=== PATIENT | female | born 1980 | race Hispanic/Latino ===

== ENCOUNTER 2019-06-18 16:51 | Outpatient (RCR) | payer OTHER, MEDICAID, SELFPAY ==
[2019-05-26 19:09] VITALS: BP 127/64; PULSE 87
[2019-06-01 12:50] VITALS: BP 136/63; PULSE 94
[2019-06-04 18:21] VITALS: BP 127/60; PULSE 89
[2019-06-08 17:20] VITALS: BP 118/62; PULSE 97
[2019-06-11 17:47] VITALS: BP 116/58; PULSE 84
[2019-06-15 17:32] VITALS: BP 118/63; PULSE 87
[2019-06-18 18:15] VITALS: BP 113/57; PULSE 80
== END 2019-08-21 07:59 | disposition home or self-care (01) ==
LOC: ANHOBOP 16:51
PROVIDERS: Visit Provider Obstetrics & Gynecology Gynecology
DX: O40.2XX0 Polyhydramnios, second trimester, not applicable or unspecified (principal); O24.419 Gestational diabetes mellitus in pregnancy, unspecified control; O76 Abnormality in fetal heart rate and rhythm complicating labor and delivery; Z3A.24 24 weeks gestation of pregnancy; Z3A.25 25 weeks gestation of pregnancy; Z3A.26 26 weeks gestation of pregnancy; Z3A.27 27 weeks gestation of pregnancy
CPT/HCPCS: 59025

== ENCOUNTER 2019-08-10 10:51 | Outpatient (CLI) | payer OTHER, MEDICAID, SELFPAY ==
[2019-08-10 11:16] VITALS: BP 141/81; PULSE 84
[2019-08-10 11:29] LABS: Basophils Percent Auto 0.3 % (0.2-1.2); Eosinophils Absolute Auto 0.1 K/mm3 (0-0.3); Hematocrit 34.9 % (37.0-47.0); Hemoglobin 11.4 g/dL (12.0-15.0); Immature Granulocyte Absolute 0.05 K/mm3 (0.00-0.031); Immature Granulocyte Percent A 0.8 % (0-0.5); Lymphocytes Absolute Auto 1.78 K/mm3 (0.9-3.2); Lymphocytes Percent Auto 28.5 % (18.3-44.2); Mean Corpuscular HGB Conc 32.7 g/dl (32-36); Mean Corpuscular Volume 85.7 fl (80-100); Mean Platelet Volume 10.3 fl (7.4-10.4); Monocytes Absolute Auto 0.7 K/mm3 (0.1-0.6); Monocytes Percent Auto 10.7 % (2.6-8.5); Neutrophils Absolute Auto 3.7 K/mm3 (1.3-6.7); Neutrophils Percent Auto 58.7 % (45.5-73.1); Platelet Count Result 225 k/mm3 (150-375); Red Blood Count 4.07 M/mm3 (4.2-5.4); Red Cell Distribution Width 12.6 % (11.5-14.5); White Blood Count 6.2 K/mm3 (4.5-10.0)
[2019-08-10 11:31] VITALS: BP 126/69; PULSE 87
[2019-08-10 11:37] LABS: Creatinine Urine 26.7 mg/dL; Total Protein Urine Random 13 mg/dL
[2019-08-10 11:38] LABS: Add Urine Microscopic? YES; Appearance Urine Clear (Clear); Bacteria Urine Trace /hpf; Bilirubin Urine Negative (Negative); Blood Urine 1+ (Negative); Color Urine Straw (Yellow); Glucose Urine UA Negative (Negative); Ketones Urine Negative (Negative); Leukocyte Esterase Ur Negative LEU/UL (NEGATIVE); Mucus Urine Rare /lpf; Nitrate Urine Negative (Negative); Protein Urine Negative (Negative); RBC Urine 0-2 /hpf (0-2); Specific Grav Ur 1.008 (1.001-1.035); Squamous Epithelial Cell Urine Many /hpf (Few); Urobilinogen Urine Negative mg/dL (<2.0)
[2019-08-10 11:42] LABS: Alanine Aminotransferase 17 U/L (4-35); Albumin Level 3.3 g/dL (3.5-5.1); Alkaline Phosphatase 85 U/L (38-126); Aspartate Amino Transferase 18 U/L (14-36); Bilirubin,Total 0.3 mg/dL (0.2-1.3); Blood Urea Nitrogen 7 mg/dL (7-17); Calcium 8.5 mg/dL (8.4-10.2); Carbon Dioxide 23 mmol/L (22-30); Chloride 106 mmol/L (98-107); Estimated Glomerular Filt Rate > 60; Glucose 80 mg/dL (65-105); Potassium 3.9 mmol/L (3.4-5.0); Sodium 133 mmol/L (137-145); Uric Acid 4.5 mg/dL (2.5-7.5)
[2019-08-10 11:46] VITALS: BP 135/74; PULSE 89
--- NOTE | 2019-08-10 11:51 | PC.NURSE ---
Dr Sharma notified of lab results and Bp's. Have patient keep next appt.
== END 2019-08-10 11:56 | disposition home or self-care (01) ==
LOC: ANHOBOP 10:58 → ANHOBPP 11:01
PROVIDERS: Visit Provider Obstetrics & Gynecology Gynecology
DX: O26.899 Other specified pregnancy related conditions, unspecified trimester (principal)
CPT/HCPCS: 36415; 59025; 80053; 81001; 82570; 84156; 84550; 85025; 87086; 87088; 99199

== ENCOUNTER 2019-08-13 16:33 | Outpatient (RCR) | payer OTHER, MEDICAID, SELFPAY ==
[2019-07-04 19:59] VITALS: PULSE 79
--- NOTE | 2019-07-04 20:16 | PC.NURSE ---
1931- pt came in c/o DFM all day. pt states that she has layed down and tried drinking ice water to help but is still not feeling baby move. pt states that while doing NST she is feeling baby move. 2009- Dr. Sharma paged 2011- Dr. Sharma returned page. NST reactive. mom feeling movement. pt ok to d/c home and f/u in office or here if further concerns.
[2019-07-27 18:36] VITALS: BP 130/67; PULSE 85
[2019-08-06 18:45] VITALS: BP 124/64; PULSE 80
[2019-08-13 17:06] VITALS: BP 134/68; PULSE 87
== END 2019-08-21 08:00 | disposition home or self-care (01) ==
LOC: ANHOBOP 16:33
PROVIDERS: Visit Provider Obstetrics & Gynecology Gynecology
DX: O36.8130 Decreased fetal movements, third trimester, not applicable or unspecified (principal); Z3A.29 29 weeks gestation of pregnancy; O24.419 Gestational diabetes mellitus in pregnancy, unspecified control; Z3A.32 32 weeks gestation of pregnancy; Z3A.34 34 weeks gestation of pregnancy; Z3A.35 35 weeks gestation of pregnancy
CPT/HCPCS: 59025

== ENCOUNTER 2019-08-16 19:22 | Outpatient (CLI) | payer OTHER, MEDICAID, SELFPAY ==
[2019-08-16 20:24] LABS: Basophils Percent Auto 0.4 % (0.2-1.2); Eosinophils Absolute Auto 0.1 K/mm3 (0-0.3); Eosinophils Percent Auto 0.7 % (0-4.4); Hematocrit 37.4 % (37.0-47.0); Immature Granulocyte Absolute 0.05 K/mm3 (0.00-0.031); Immature Granulocyte Percent A 0.7 % (0-0.5); Lymphocytes Absolute Auto 2.05 K/mm3 (0.9-3.2); Lymphocytes Percent Auto 29.4 % (18.3-44.2); Mean Corpuscular HGB Conc 32.1 g/dl (32-36); Mean Corpuscular Hemoglobin 27.5 pg (26-34); Mean Corpuscular Volume 85.6 fl (80-100); Mean Platelet Volume 10.3 fl (7.4-10.4); Monocytes Absolute Auto 0.6 K/mm3 (0.1-0.6); Monocytes Percent Auto 8.9 % (2.6-8.5); Neutrophils Absolute Auto 4.2 K/mm3 (1.3-6.7); Neutrophils Percent Auto 59.9 % (45.5-73.1); Platelet Count Result 281 k/mm3 (150-375); Red Blood Count 4.37 M/mm3 (4.2-5.4); Red Cell Distribution Width 12.6 % (11.5-14.5)
[2019-08-16 20:32] LABS: Add Urine Microscopic? YES; Appearance Urine Clear (Clear); Bacteria Urine Trace /hpf; Bilirubin Urine Negative (Negative); Blood Urine 2+ (Negative); Color Urine Yellow (Yellow); Glucose Urine UA Negative (Negative); Ketones Urine Negative (Negative); Leukocyte Esterase Ur Negative LEU/UL (NEGATIVE); Mucus Urine Rare /lpf; Nitrate Urine Negative (Negative); Protein Urine 2+ mg/dL (Negative); Specific Grav Ur 1.025 (1.001-1.035); Squamous Epithelial Cell Urine Moderate /hpf (Few); Urobilinogen Urine Negative mg/dL (<2.0); WBC Urine 0-3 /hpf (0-3)
[2019-08-16 20:38] VITALS: BP 145/72; PULSE 96
[2019-08-16 20:38] LABS: Alanine Aminotransferase 15 U/L (4-35); Albumin Level 3.5 g/dL (3.5-5.1); Alkaline Phosphatase 105 U/L (38-126); Aspartate Amino Transferase 19 U/L (14-36); Bilirubin,Total 0.1 mg/dL (0.2-1.3); Blood Urea Nitrogen 11 mg/dL (7-17); Calcium 8.7 mg/dL (8.4-10.2); Carbon Dioxide 22 mmol/L (22-30); Chloride 104 mmol/L (98-107); Estimated Glomerular Filt Rate > 60; Glucose 114 mg/dL (65-105); Potassium 4.1 mmol/L (3.4-5.0); Sodium 133 mmol/L (137-145); Uric Acid 4.7 mg/dL (2.5-7.5)
== END 2019-08-16 20:59 | disposition home or self-care (01) ==
LOC: ANHOBOP 19:29
PROVIDERS: Obstetrics & Gynecology; Family Provider Obstetrics & Gynecology Gynecology; Visit Provider Obstetrics & Gynecology Gynecology
DX: O13.9 Gestational [pregnancy-induced] hypertension without significant proteinuria, unspecified trimester (principal); Z3A.00 Weeks of gestation of pregnancy not specified
CPT/HCPCS: 36415; 59025; 80053; 81001; 84550; 85025

== ENCOUNTER 2019-08-17 19:27 | Outpatient (CLI) | payer OTHER, MEDICAID, SELFPAY ==
[2019-08-17 19:33] VITALS: BMI 46.2
[2019-08-17 19:54] LABS: Collection Time Urine 24 HOURS
[2019-08-17 19:57] LABS: Specific Gravity Ur 1.014; Total Volume 24 Hour Urine 2600 ml
[2019-08-17 20:01] LABS: Patient Weight 286 Lbs
[2019-08-17 20:09] LABS: Creatinine Clearance Urine 179.5 ml/min (75-125); Total Protein Urine Random 34 mg/dL
[2019-08-17 20:20] LABS: Total Protein Urine 24 Hr > 600 MG/DAY (28-141)
== END 2019-08-17 19:28 | disposition home or self-care (01) ==
LOC: ANHOBOP 19:32
PROVIDERS: Visit Provider Obstetrics & Gynecology
DX: Z34.90 Encounter for supervision of normal pregnancy, unspecified, unspecified trimester (principal); Z3A.00 Weeks of gestation of pregnancy not specified
CPT/HCPCS: 81050; 82575; 84156

== ENCOUNTER 2019-08-20 15:41 | Outpatient (CLI) | payer OTHER, MEDICAID, SELFPAY ==
[2019-08-20 16:03] VITALS: BP 138/76; PULSE 81
[2019-08-20 16:17] VITALS: BP 138/76; PULSE 75
[2019-08-20 16:20] LABS: Basophils Percent Auto 0.4 % (0.2-1.2); Eosinophils Percent Auto 0.4 % (0-4.4); Hematocrit 37.5 % (37.0-47.0); Hemoglobin 12.1 g/dL (12.0-15.0); Immature Granulocyte Absolute 0.06 K/mm3 (0.00-0.031); Immature Granulocyte Percent A 0.8 % (0-0.5); Lymphocytes Absolute Auto 1.79 K/mm3 (0.9-3.2); Lymphocytes Percent Auto 23.3 % (18.3-44.2); Mean Corpuscular HGB Conc 32.3 g/dl (32-36); Mean Corpuscular Hemoglobin 27.6 pg (26-34); Mean Corpuscular Volume 85.6 fl (80-100); Mean Platelet Volume 10.1 fl (7.4-10.4); Monocytes Absolute Auto 0.8 K/mm3 (0.1-0.6); Monocytes Percent Auto 10.9 % (2.6-8.5); Neutrophils Absolute Auto 4.9 K/mm3 (1.3-6.7); Neutrophils Percent Auto 64.2 % (45.5-73.1); Platelet Count Result 279 k/mm3 (150-375); Red Blood Count 4.38 M/mm3 (4.2-5.4); Red Cell Distribution Width 12.8 % (11.5-14.5); White Blood Count 7.7 K/mm3 (4.5-10.0)
[2019-08-21 07:53] LABS: Rapid Plasma Reagin Non-Reactive (NonReactive)
== END 2019-08-20 16:30 | disposition home or self-care (01) ==
LOC: ANHOBOP 15:43 → ANHLDR 15:50
PROVIDERS: Visit Provider Obstetrics & Gynecology Gynecology
DX: Z01.818 Encounter for other preprocedural examination (principal)
CPT/HCPCS: 36415; 59025; 85025; 86592; 86850; 86900; 86901; 99199

== ENCOUNTER 2019-08-21 04:57 | Inpatient (IN) | payer OTHER, MEDICAID, SELFPAY ==
[2019-08-21] VITALS (82 sets, daily range): BP systolic 99–164; BP diastolic 41–91; PULSE 58–93; RESP 16–20; TEMP 36.1–37.6; O2SAT 95–100; BMI 45.3
--- NOTE | 2019-08-21 06:38 | LDADM ---
This patient, Rosalind Simmons, was admitted to Labor/Delivery/Recovery 120 on 08/21/19 at 04:57. Plans for labor, pain management and were discussed with patient. Patient/family oriented to hospital policies and general routines including ID bracelet, bed and alarms, visiting hours, pain management, procedures, bathroom and other care routines, personal items, smoking policy, room service/diet and guest tray routines, infant security routines, call light, and visiting hours. Patient/Family are encouraged to report perceived risks to care and to ask questions if they do not understand what they are told or what they should do. See OBIX for further documentation.
--- NOTE | 2019-08-21 06:55 | WPDANESEPPF ---
Anes - Initial Pre Proc Eval Procedure: Operation Date: 08/21/19 07:30 Proposed Procedures p Repeat Section - Danay Sharma MD Date/Time: 08/21/19 06:55 Surgeon: Danay Sharma MD Pre Op Diagnosis: Patient Data Age: 39 Gender: F Height: 5 ft 6 in Weight: 127.3 kg Last Vital Signs Pulse 88 08/21/19 06:26 BP 139/82 08/21/19 06:26 Pulse Ox 100 08/21/19 06:48 Allergies Allergy/AdvReac Type Severity Reaction Status Date / Time morphine Allergy Mild Rash Verified 02/26/19 03:07 cyclobenzaprine Allergy Unknown Itching Verified 02/26/19 03:07 Home Medications Medication Instructions Recorded Confirmed Type insulin NPH isoph U-100 human 93 unit SUBCUT HS 06/04/19 08/20/19 History [Novolin N NPH U-100 Insulin] metformin 500 mg PO DAILY 08/20/19 08/20/19 History Patient hx anesthesia problems: none Family hx anesthesia problems: none PMFSH Past Medical History Medical History (Updated 08/21/19 @ 06:55 by Samir Mckay MD) Gestational diabetes HTN (hypertension) Miscarriage Surgical History Surgical History (Updated 08/21/19 @ 06:55 by Samir Mckay MD) History of section History of cholecystectomy Family History Family History Son Trisomy 21 Father High cholesterol Heart disease Diabetes mellitus Hypertension Social History Social History Smoking packs per day: 1 Smoking cigarettes per day: 20.0 Years smoked: 20 Smoking pack-years: 20.00 Smoking status: Former smoker Smoking end date: 01/14/19 Substance use: never Gender identity (if verbalized by the patient): Female Spiritual care concerns: No Anes - Eval Final PreProcedure Day of Procedure 08/21/19 06:55 Patient weight: morbidly obese Heart: regular rate and rhythm Lungs: clear to auscultation Airway: Mallampati scale class II Neurological: alert and oriented Last oral intake: >/= 8 hours ASA classification: III Emergent: no Anesthetic plan: proceed Anesthesia type and monitoring: regional spinal and standard monitoring Informed Consent: The patient's anesthetic plan and its attendant risks and benefits were discussed with the patient/family/POA. Questions were solicited and answers provided to the satisfaction of the patient/family/POA.
[2019-08-21] MEDS: LACTATED RINGERS 1,000 ML 125 ML IV CONT (06:57)
--- NOTE | 2019-08-21 07:19 | PM.IMHP ---
H&P: HPI History of Present Illness Chief complaint: Narrative: Rosalind Simmons is a 39 year old female A1 at 36 3/7 wks here for repeat csection due to preeclampsia. complicated by GDMA2 dx 1st trimester. Currently on 93 units NPH at HS and Metformin. EFW has been >95 % and has had polyhydramnios on and off. labs O+; RPR -; HIV-; HBSAG - PMFSH Past Medical History Medical History (Updated 08/21/19 @ 07:26 by Danay Sharma MD) Asthma Gestational diabetes GDMA2-dx 1st trimester HTN (hypertension) Miscarriage Surgical History Surgical History (Updated 08/21/19 @ 07:24 by Danay Sharma MD) History of section x 4 History of cholecystectomy Family History Family History Son Trisomy 21 Father High cholesterol Heart disease Diabetes mellitus Hypertension Social History Social History Smoking packs per day: 1 Smoking cigarettes per day: 20.0 Years smoked: 20 Smoking pack-years: 20.00 Smoking status: Former smoker Smoking end date: 01/14/19 Substance use: never Gender identity (if verbalized by the patient): Female Spiritual care concerns: No Meds Home Medications and Allergies Home Medications Medication Instructions Recorded Confirmed Type insulin NPH isoph U-100 human 93 unit SUBCUT HS 06/04/19 08/20/19 History [Novolin N NPH U-100 Insulin] metformin 500 mg PO DAILY 08/20/19 08/20/19 History Allergies Allergy/AdvReac Type Severity Reaction Status Date / Time morphine Allergy Mild Rash Verified 02/26/19 03:07 cyclobenzaprine Allergy Unknown Itching Verified 02/26/19 03:07 Vital Signs Vital Signs - 24 hr 08/21/19 06:23 08/21/19 06:26 08/21/19 06:28 Pulse Rate 88 Blood Pressure 139/82 Pulse Oximetry 99 99 08/21/19 06:33 08/21/19 06:38 08/21/19 06:43 Pulse Rate Blood Pressure Pulse Oximetry 98 100 99 08/21/19 06:48 Pulse Rate Blood Pressure Pulse Oximetry 100 Exam Const: General: healthy appearing and alert Orientation/consciousness: patient oriented x3 Resp: Effort & Inspection: normal respiratory effort Auscultation: clear to auscultation bilaterally Cardio: Rate: regular rate Rhythm: regular rhythm GI: GI Palp: Yes Soft to palpation, No Tenderness to palpation present (GI) and Yes Other GI palpation findings present (gravid with FH 42 cm) : External Female Exam: normal external appearance Speculum Exam - Vagina: normal appearance of the vagina and normal vaginal discharge Speculum Exam - Cervix: normal appearance of the cervix Bimanual exam- vagina & uterus: uterine size normal and consistency normal Bimanual Exam- Adnexa, other: normal adnexae and No adnexal tenderness Neuro: General: patient oriented x3 Assessment and Plan Assessment and plan (1) Preeclampsia: Code(s): O14.90 - Unspecified pre-eclampsia, unspecified trimester Status: Acute Assessment and Plan: Plan to proceed with repeat LTCS. Plan magnesium (2) Gestational diabetes: Code(s): O24.419 - Gestational diabetes mellitus in , unspecified control Status: Acute Assessment and Plan: plan to check 2 hour GTT 6 wk pp (3) History of section: Code(s): Z98.891 - History of uterine scar from previous surgery Status: Acute Assessment and Plan: x 4 plus x 1 Plan 2 IV's, blood bank notified of high risk for transfusion, cytotec in room
--- NOTE | 2019-08-21 08:31 | P.OPB_ITS ---
Procedure Note - Brief Procedure Note - Brief Date of procedure: 08/21/19 Pre-op diagnosis: IUP 36 3/7 wks; Preeclampsia; GDMA2; Prior c/s x 4 Post-op diagnosis: same Procedure performed: repeat LTCS Anesthesia: spinal Surgeon: Danay Sharma MD Estimated blood loss (mL): 250 Drains: Yes (vasquez) Packing: No Pathology: yes (placenta and 2 cm mass in pelvis attaced to omentum) Complications: No immediate complications Condition: stable Disposition: floor Findings: female infant 7#1oz with 9/9 scores; normal appearing tubes, ov nevin, and uterus
--- NOTE | 2019-08-21 08:34 | PM.OBDSVD ---
DS: Admitting Diagnosis Admitting Diagnosis Admitting Diagnosis: Unspecified pre-eclampsia, unspecified trimester DS: Discharge Diagnosis Discharge Diagnosis (1) delivery delivered: Code(s): O82 - Encounter for delivery without indication Status: Acute (2) Preeclampsia: Code(s): O14.90 - Unspecified pre-eclampsia, unspecified trimester Status: Acute (3) History of section: Code(s): Z98.891 - History of uterine scar from previous surgery Status: Acute (4) Gestational diabetes: Code(s): O24.419 - Gestational diabetes mellitus in , unspecified control Status: Acute OB - DS: Summary OB Procedures : NST, PIH Mgmt, Ultrasound and Other (GDMA2 management) OB Procedures Intrapartum: (repeat #5 ) low cervical, transverse OB Procedures: : None Peripartum Data Infant Delivery Method: Section Procedures: Procedures Operation Date: 08/21/19 07:30 <No data on this case meets the specified criteria> complications: none Status at Discharge Functional status at discharge: independent ambulation Overall status at discharge: patient is progressing back to baseline Time Spent with Patient Time attestation: Total time spent providing and/or coordinating discharge services: Discharge Plan Discharge Attending physician on discharge: Danay Sharma Consulting providers: Samir Mckay Discharging Clinician: Zachary Kebede Anticipated Discharge Date/Time: 08/24/19 08:36 Patient Disposition: Home, Self-Care Activity: may drive after 2 weeks and pelvic rest Diet: regular Discharge Instructions: Education: Mom and Baby Guide Given to: Mother Follow-Up: Call your delivering provider's office for an appointment to be seen in: 1 Week Mom and baby should come to the [facility] for the follow-up appointment. Appointment Date/Time: August 25, 2019 at 8:00 am What to expect at your follow-up visit: Blood Pressure Check Physical Assessment Call [phone] if you are unable to keep your appointment time. BREAST CARE: 1. Wear a snug supportive bra. 2. For engorgement discomfort: Bottle Feeding: A. May apply ice packs ABDOMINAL INCISION: (if applicable) 1. Allow incision to air dry 2. Do NOT use lotions for powders on your incision 3. When showering, allow soap and water to run over the incision, but do not wash incision EPISIOTOMY/PERINEAL CARE: 1. Until bleeding stops, use your kin bottle after urinating 2. Change your pad frequently throughout the day 3. No tub baths until seen by your physician - You may shower ACTIVITY: 1. Rest as much as possible. 2. Do not exercise or lift anything heavier than your baby (such as laundry or other children.) 3. Avoid stairs or driving as much as possible. 4. Do not put anything into the vagina. No douching, tampons, or sexual activity until seen by physician. NOTIFY PHYSICIAN IF YOU HAVE ANY QUESTIONS OR IF ANY OF THE FOLLOWING SYMPTOMS OCCUR: 1. If your incision becomes red, swollen, or more painful than what you have experienced in the hospital. 2. If your vaginal bleeding becomes foul smelling. 3. If your vaginal bleeding becomes more heavy than a period or if your bleeding changes from pink to bright red. However, you may pass an occasional walnut-sized clot once or twice for the first week . 4. If you experience a sharp, shooting pain in you calves. 5. If you discover a hard, reddened area on your breast or if you experience flu-like symptoms. DIET: 1. Eat regular, well-balanced meals. 2. Drink plenty of fluids daily. Patient Instructions: Antibiotic Form Stand Alone Forms: General Discharge Information Follow-up/Referrals: Danay Sharma MD [Physician] - 1 Week Discharge Medications: New ibuprofen 600 mg Tablet 600 mg PO Q6H PA
[2019-08-21] MEDS: LORATADINE 10 MG TABLET PO (09:15)
[2019-08-21] MEDS: OXYTOCIN 30 UNITS/NS 500 ML 30 UNITS/500 ML BAG 125 UNITS IV CONT (09:15)
[2019-08-21] MEDS: MAGNESIUM SULF 4 GM/WATER100ML 4 GM/100 ML BAG IVPB (10:38)
[2019-08-21] MEDS: MAGNESIUM SULF 20GM/WATER500ML 500 ML 50 MG IV CONT ×2 (11:30→20:55)
[2019-08-21] MEDS: KETOROLAC 30 MG/ML VIAL (*BKC) IV PUSH ×2 (11:48→19:43)
--- NOTE | 2019-08-21 12:36 | OBPPTRN ---
Patient transferred to post room #284 via stretcher. Support person present. Oriented to unit, room, information board, rooming in, admission packet and security measures. Patient verbalizes understanding.
[2019-08-21] MEDS: ONDANSETRON INJ 4 MG/2 ML VIAL IV PUSH (13:09)
[2019-08-21] MEDS: KCL 20 MEQ/D5/0.45% SOD CHL 1,000 ML 125 ML IV CONT (17:10)
[2019-08-21] MEDS: SIMETHICONE 80 MG TAB.CHEW PO ×2 (19:43→23:00)
[2019-08-22] MEDS: SIMETHICONE 80 MG TAB.CHEW PO ×6 (01:50→23:30)
[2019-08-22] MEDS: KETOROLAC 30 MG/ML VIAL (*BKC) IV PUSH (01:50)
--- NOTE | 2019-08-22 02:02 | OP_ITS ---
DATE OF PROCEDURE: 08/21/2019 PREOPERATIVE DIAGNOSES: 1. Intrauterine at 36 and 3/7 th weeks. 2. Preeclampsia. 3. Gestational diabetes, insulin requiring. 4. Morbid obesity. 5. Previous section x4. POSTOPERATIVE DIAGNOSES: 1. Intrauterine at 36 and 3/7 th weeks. 2. Preeclampsia. 3. Gestational diabetes, insulin requiring. 4. Morbid obesity. 5. Previous section x4. PROCEDURE: Repeat . ANESTHESIA: Spinal. FINDINGS: Female , 7 pounds 1 ounce. Apgars of 9 at one minute, 9 at five minutes. Normal-appearing tubes, ovaries, and uterus. ESTIMATED BLOOD LOSS: 250 cc. PATHOLOGY: Placenta. DESCRIPTION OF PROCEDURE: The patient was taken to the operating room, placed under anesthesia, prepped and draped in usual sterile fashion in the dorsal supine position with a leftward tilt. Once anesthesia was deemed adequate, the traxi manipulator self-retaining retractor was placed. The patient was prepped and draped. A Pfannenstiel skin incision was made through the prior incisions and carried down to the underlying layer of fascia. Fascia was nicked in the midline and extended laterally using Che scissors. Ochsners were then used to tent the fascia, which was dissected off using sharp and blunt dissection. The rectus muscles were in the midline. The peritoneum was entered during this process. The incision was extended with blunt traction. The abdominal cavity is palpated and no scar tissue was noted anteriorly. The Felipe O retractor was placed. The bladder flap was well below the line needed to incise the uterus. The uterus was incised above the bladder flap with a scalpel and carried down to the underlying membranes. Membranes were ruptured with clear fluid noted. The infant's head was delivered through the incision. The was fully delivered and the cord clamped and cut. The infant handed to the waiting OB nurse. The placenta was removed using manual traction. The uterus was cleared of all clots and debris and left in situ. The uterine incision was grasped posteriorly with a ring forceps. The uterine incision was closed using 0 Monocryl in a running locked fashion. Same suture was used to imbricate. Two additional [id number] sutures are required in the midline for hemostasis. The gutters were irrigated. The incision was again inspected and noted to be hemostatic. The fascia is closed. Using 0 Vicryl in a running fashion subcutaneous tissues were irrigated and noted to be hemostatic. Skin is closed using 4-0 Vicryl in a subcuticular fashion. DermaFlex was placed over the incision. Once the DermaFlex is dry the Mepilex dressing was placed. The patient was taken to Recovery in stable condition. She was given Ancef 3 g prior to incision. Sponge, instrument, needle counts are correct per the OR staff. D I MT: Alex
[2019-08-22 04:15] VITALS: BP 148/84; PULSE 76; RESP 20; TEMP 36.6
[2019-08-22 04:58] LABS: Basophils Percent Auto 0.2 % (0.2-1.2); Eosinophils Absolute Auto 0.1 K/mm3 (0-0.3); Eosinophils Percent Auto 0.7 % (0-4.4); Hematocrit 35.5 % (37.0-47.0); Hemoglobin 11.4 g/dL (12.0-15.0); Immature Granulocyte Absolute 0.04 K/mm3 (0.00-0.031); Immature Granulocyte Percent A 0.4 % (0-0.5); Lymphocytes Absolute Auto 2.13 K/mm3 (0.9-3.2); Lymphocytes Percent Auto 23.6 % (18.3-44.2); Mean Corpuscular HGB Conc 32.1 g/dl (32-36); Mean Corpuscular Hemoglobin 27.6 pg (26-34); Mean Platelet Volume 10.5 fl (7.4-10.4); Monocytes Absolute Auto 0.7 K/mm3 (0.1-0.6); Monocytes Percent Auto 8.2 % (2.6-8.5); Neutrophils Percent Auto 66.9 % (45.5-73.1); Platelet Count Result 234 k/mm3 (150-375); Red Blood Count 4.13 M/mm3 (4.2-5.4); Red Cell Distribution Width 12.8 % (11.5-14.5)
[2019-08-22] MEDS: KCL 20 MEQ/D5/0.45% SOD CHL 1,000 ML 75 ML IV CONT (05:25)
[2019-08-22 08:15] VITALS: BP 156/86; PULSE 84; RESP 20; TEMP 36.7; O2SAT 98
[2019-08-22] MEDS: DOCUSATE SODIUM 100 MG CAPSULE PO ×2 (08:31→16:04)
[2019-08-22] MEDS: IBUPROFEN 600 MG TABLET PO ×3 (08:32→23:30)
--- NOTE | 2019-08-22 10:13 | WPDANLDPN2 ---
Anes-Prog Note L&D Date/Time: 08/22/19 10:13 Comfortable throughout: section Neuraxial method: spinal Epidural/Spinal procedure site: clean & non-tender Neuro status: Neuro function grossly intact. Cardiovascular status: normal Respiratory status: normal Airway patency: baseline Mental status: baseline Post-Op hydration status: normal Vital Signs: Last Vital Signs Temp 36.6 C 08/22/19 04:15 Pulse 76 08/22/19 04:15 Resp 20 08/22/19 04:15 BP 148/84 H 08/22/19 04:15 Pulse Ox 99 08/21/19 15:00 I/O: Intake & Output 08/21/19 08/22/19 08/22/19 23:59 07:59 15:59 Intake Total 1000 1872 Output Total 800 1600 Balance 200 272 Post-procedural complaints: none Patient feedback: Patient satisfied with anesthetic care.
--- NOTE | 2019-08-22 10:14 | WPDANLDNPN2 ---
Anes-Prog Note L&D-Neuraxial Date/Time: 08/22/19 10:14 Opiod-related complaints: none Patient feedback: Patient satisfied with post-operative pain management. IT fentanyl
--- NOTE | 2019-08-22 11:04 | P.PNOB_ITS ---
OB - PN: Subj Subjective Date/time seen: 08/22/19 11:04 doing well pain much better OB - PN: Obj Data Labs CBC & Chem 7: 08/22/19 04:19 Labs: Laboratory Results - last 24 hr 08/22/19 04:19 WBC 9.0 RBC 4.13 L Hgb 11.4 L Hct 35.5 L MCV 86.0 MCH 27.6 MCHC 32.1 RDW 12.8 Plt Count 234 MPV 10.5 H Immature Gran % (Auto) 0.4 Neut % (Auto) 66.9 Lymph % (Auto) 23.6 [place] % (Auto) 8.2 Eos % (Auto) 0.7 Baso % (Auto) 0.2 Lymph # (Auto) 2.13 [place] # (Auto) 0.7 H Eos # (Auto) 0.1 Baso # (Auto) 0.0 Abs Immat Gran (auto) 0.04 H Absolute Neuts (auto) 6.0 Absolute Nucleated RBC 0.0 Nucleated RBC % 0.0 OB - PN A/P Assessment and Plan (1) delivery delivered: Code(s): O82 - Encounter for delivery without indication Status: Acute Assessment and Plan: continue with pp care (2) Preeclampsia: Code(s): O14.90 - Unspecified pre-eclampsia, unspecified trimester Status: Acute Time Spent With Patient Time: Total time spent is greater than 50% in coordination of care (as documented) at patient's floor/unit and/or counseling patient: Exam GI: Other: inc bandage present and dry
[2019-08-22] MEDS: ONDANSETRON INJ 4 MG/2 ML VIAL IV PUSH (12:21)
[2019-08-22 13:40] VITALS: BP 154/88
[2019-08-22 16:10] VITALS: BP 149/85; PULSE 84; RESP 20
[2019-08-22 19:30] VITALS: BP 156/85; PULSE 75; RESP 14; TEMP 36.7; O2SAT 97
[2019-08-22 23:25] VITALS: BP 151/79; PULSE 75
[2019-08-23] MEDS: SIMETHICONE 80 MG TAB.CHEW PO ×2 (03:58→07:12)
[2019-08-23 04:00] VITALS: BP 154/77
[2019-08-23 07:00] VITALS: BP 155/86; PULSE 72; RESP 16; TEMP 36.5; O2SAT 100
[2019-08-23] MEDS: IBUPROFEN 600 MG TABLET PO (07:10)
[2019-08-23] MEDS: DOCUSATE SODIUM 100 MG CAPSULE PO (07:10)
--- NOTE | 2019-08-23 09:46 | PC.NURSE ---
Patient was given the opportunity to view the discharge video Mother & Baby Care, The First Two Weeks and to ask questions. Patient declined viewing the video and has been given the mother/baby guide for home reference. Patient is comfortable with baby care and recovery process. Pt. has 5 other children, 4 of which were c/s.
[2019-08-25 07:47] VITALS: BP 156/73; PULSE 78; RESP 20; TEMP 37.3; O2SAT 100
== END 2019-08-23 11:00 | disposition home or self-care (01) | DRG 788 ==
LOC: ANHLDR 08-26 14:38 → ANHOB2 08-26 14:38
PROVIDERS: Admitting Provider Obstetrics & Gynecology Gynecology; Visit Provider Obstetrics & Gynecology
PROC: 10D00Z1 Extraction of Products of Conception, Low, Open Approach (ICD-10-PCS; CPT 59514; principal; 2019-08-21 07:30)
DX: O34.211 Maternal care for low transverse scar from previous cesarean delivery (principal); O24.424 Gestational diabetes mellitus in childbirth, insulin controlled; Z3A.36 36 weeks gestation of pregnancy; Z37.0 Single live birth; O40.3XX0 Polyhydramnios, third trimester, not applicable or unspecified; O14.94 Unspecified pre-eclampsia, complicating childbirth; O99.214 Obesity complicating childbirth; E66.01 Morbid (severe) obesity due to excess calories; Z87.891 Personal history of nicotine dependence
CPT/HCPCS: 36415; 85025; 88304; 88307; A9270; J0131; J1200; J1885; J2405; J2590; J3010; J3475; J3480; J7120

== ENCOUNTER 2019-08-28 13:06 | Outpatient (CLI) | payer OTHER, MEDICAID, SELFPAY ==
[2019-08-28] VITALS (9 sets, daily range): BP systolic 154–177; BP diastolic 70–79; PULSE 55–61
[2019-08-28 13:39] LABS: Basophils Percent Auto 0.4 % (0.2-1.2); Eosinophils Absolute Auto 0.1 K/mm3 (0-0.3); Eosinophils Percent Auto 1.8 % (0-4.4); Hematocrit 35.7 % (37.0-47.0); Hemoglobin 11.3 g/dL (12.0-15.0); Immature Granulocyte Absolute 0.05 K/mm3 (0.00-0.031); Immature Granulocyte Percent A 0.6 % (0-0.5); Lymphocytes Percent Auto 22.8 % (18.3-44.2); Mean Corpuscular HGB Conc 31.7 g/dl (32-36); Mean Corpuscular Hemoglobin 27.2 pg (26-34); Mean Platelet Volume 9.9 fl (7.4-10.4); Monocytes Absolute Auto 0.6 K/mm3 (0.1-0.6); Monocytes Percent Auto 7.6 % (2.6-8.5); Neutrophils Absolute Auto 5.3 K/mm3 (1.3-6.7); Neutrophils Percent Auto 66.8 % (45.5-73.1); Platelet Count Result 285 k/mm3 (150-375); Red Blood Count 4.15 M/mm3 (4.2-5.4); Red Cell Distribution Width 12.8 % (11.5-14.5); White Blood Count 7.9 K/mm3 (4.5-10.0)
[2019-08-28 13:51] LABS: Alanine Aminotransferase 45 U/L (4-35); Albumin Level 3.5 g/dL (3.5-5.1); Alkaline Phosphatase 74 U/L (38-126); Aspartate Amino Transferase 27 U/L (14-36); Bilirubin,Total 0.2 mg/dL (0.2-1.3); Blood Urea Nitrogen 12 mg/dL (7-17); Calcium 8.8 mg/dL (8.4-10.2); Carbon Dioxide 31 mmol/L (22-30); Chloride 104 mmol/L (98-107); Estimated Glomerular Filt Rate > 60; Glucose 93 mg/dL (65-105); Potassium 4.2 mmol/L (3.4-5.0); Sodium 138 mmol/L (137-145); Uric Acid 6.7 mg/dL (2.5-7.5)
[2019-08-28] MEDS: NIFEdipine 30 MG TAB.ER.24 PO (14:13)
--- NOTE | 2019-08-28 15:45 | PC.NURSE ---
1306-Pt sent over from the office for elevated bp's and swelling.
--- NOTE | 2019-08-28 15:46 | PC.NURSE ---
1400- on unit, reviewed bp's, orders received for procardia 30 now.
--- NOTE | 2019-08-28 15:46 | PC.NURSE ---
1516- reviewed labs and bp's, orders received to discharge pt home and have her pick prescription up in the pharmacy for procardia 30 every day
== END 2019-08-28 15:20 | disposition home or self-care (01) ==
LOC: ANHOBOP 13:09 → ANHOBPP 13:12
PROVIDERS: Visit Provider Obstetrics & Gynecology
DX: O13.9 Gestational [pregnancy-induced] hypertension without significant proteinuria, unspecified trimester (principal); Z3A.00 Weeks of gestation of pregnancy not specified
CPT/HCPCS: 36415; 80053; 84550; 85025; 99199; A9270

== ENCOUNTER 2020-12-06 11:35 | Emergency (ER) | payer OTHER, MEDICAID, SELFPAY ==
[2020-12-06 11:44] VITALS: BP 142/88; PULSE 92; RESP 16; TEMP 36.3; O2SAT 100
--- NOTE | 2020-12-06 12:13 | ED.URI ---
HPI - URI/Sore Throat General Chief Complaint: Upper Respiratory Infection Stated Complaint: SORE THROAT/CONGESTION/STREP EXPOSURE Time Seen by Provider: 12/06/20 11:59 Source: patient and RN notes reviewed Mode of arrival: ambulatory Limitations: no limitations History of Present Illness HPI Narrative: Patient presents today complaining of sore throat, congestion, rhinorrhea, fatigue. Both of her children currently have strep throat. She has been taking Benadryl and Aleve with mild relief. MD elicited complaint: sore throat and nasal congestion Related Data Home Medications Medication Instructions Recorded Confirmed rizatriptan 10 mg PO .PRN PRN 12/06/20 12/06/20 Allergies Allergy/AdvReac Type Severity Reaction Status Date / Time morphine Allergy Mild Rash Verified 12/06/20 11:55 cyclobenzaprine Allergy Unknown Itching Verified 12/06/20 11:55 Review of Systems Review of Systems: CONSTITUTIONAL: Denies body aches, fever, chills, or sweats.+ Fatigue EYES: Denies visual changes, redness, or discharge. ENT: Denies otalgia.+ Rhinorrhea, congestion, sore throat CARDIOVASCULAR: Denies chest pain, palpitations, or edema. RESPIRATORY: Denies dyspnea.+ Cough GASTROINTESTINAL: Denies abdominal pain, nausea, vomiting, or diarrhea. GENITOURINARY: Denies dysuria or hematuria. SKIN: Denies rash, itching, or wounds. MUSCULOSKELETAL: Denies back pain, joint pain, or myalgia. NEUROLOGIC: Denies headache, numbness, tingling, or weakness. PSYCH: Denies depression or anxiety. [facility] Past Medical History Medical History Asthma Gestational diabetes GDMA2-dx 1st trimester HTN (hypertension) Miscarriage Surgical History Surgical History History of section x 4 History of cholecystectomy Family History Family History Son Trisomy 21 Father High cholesterol Heart disease Diabetes mellitus Hypertension Social History Social History Smoking packs per day: 1 Smoking cigarettes per day: 20.0 Years smoked: 20 Smoking pack-years: 20.00 Smoking status: Former smoker Smoking end date: 01/14/19 Substance use: never Gender identity (if verbalized by the patient): Female Spiritual care concerns: No Comments At time of signature, I have reviewed and agree with nursing past medical, surgical, social and family history unless otherwise noted. Please see nursing chart for further information. There is no relevant family history pertinent to the presenting complaint Exam Narrative: GENERAL: Mildly ill-appearing, well-nourished, and in no acute distress. HEAD: Normocephalic, atraumatic. EYES: EOMI. No redness or drainage. Conjunctivae normal. ENT: Mucous membranes pink and moist. Nares congested with clear drainage. TMs normal bilaterally. Throat normal. Uvula midline. NECK: Normal AROM. Supple. No lymphadenopathy. CHEST: No respiratory distress. Clear to auscultation. HEART: Regular rate and rhythm. No murmur appreciated. Normal peripheral pulses. EXTREMITIES: Normal range of motion. No edema. SKIN: Warm, dry, no rash. Capillary refill normal. Normal skin turgor. NEURO: No focal deficits. Alert and oriented x3. Gait steady. PSYCH: Normal affect. No signs of depression or anxiety. Course Vital Signs Vital signs: Vital Signs Temperature 97.4 F L 12/06/20 11:44 Pulse Rate 92 12/06/20 11:44 Respiratory Rate 16 12/06/20 11:44 Blood Pressure 142/88 H 12/06/20 11:44 Pulse Oximetry 100 12/06/20 11:44 Temperature 97.4 F L 12/06/20 11:44 Pulse Rate 92 12/06/20 11:44 Respiratory Rate 16 12/06/20 11:44 Blood Pressure 142/88 H 12/06/20 11:44 Pulse Oximetry 100 12/06/20 11:44 Reviewed. Pt has been instructed to follow up wit
== END 2020-12-06 12:27 | disposition home or self-care (01) ==
PROVIDERS: Emergency Provider Nurse Practitioner
DX: J06.9 Acute upper respiratory infection, unspecified (principal); Z87.891 Personal history of nicotine dependence; J45.909 Unspecified asthma, uncomplicated; I10 Essential (primary) hypertension
CPT/HCPCS: 87081; 87880; 99213; G0463

== ENCOUNTER 2021-01-18 08:19 | Emergency (ER) | payer OTHER, MEDICAID, SELFPAY ==
--- NOTE | ~2021-01-18 | CT_ITS ---
EXAMINATION: CT BRAIN W/O DATE: 01/18/2021 09:34 INDICATION: Headache TECHNIQUE: Computed tomography (CT) of the head was performed without intravenous contrast. The dose- length product was 605.33 mGy-cm. Automated exposure control and iterative reconstruction technique w ere employed. COMPARISON: CT dated 09/16/2011 FINDINGS: Normal brain parenchymal volume for age. Normal hooper-white differentiation. No acute intrac ranial hemorrhage, infarction, mass or mass effect. No ventriculomegaly or midline shift. Midline sagittal images demonstrate a normal corpus callosum, c raniovertebral junction and sella turcica. Basilar cisterns are patent. Paranasal sinuses and mastoids are pneumatized. No depressed skull fractures. IMPRESSION: 1. No acute intracranial abnormality. Reviewed, dictated and finalized at location B.
[2021-01-18 08:22] VITALS: BP 133/93; PULSE 74; RESP 16; TEMP 36.7; O2SAT 98
[2021-01-18] MEDS: diphenhydrAMINE HCl INJ 50 MG/ML VIAL 25 MG IV PUSH (08:57)
[2021-01-18] MEDS: KETOROLAC 30 MG/ML VIAL (*BKC) IV PUSH (08:58)
[2021-01-18] MEDS: METOCLOPRAMIDE HCL INJ 10 MG/2 ML VIAL IV PUSH (08:59)
[2021-01-18] MEDS: LACTATED RINGERS 1,000 ML 999 ML IV CONT (09:00)
--- NOTE | 2021-01-18 09:01 | ED.HA ---
HPI - Headache General Chief Complaint: Headache Stated Complaint: Migraine GONZALEZ Time Seen by Provider: 01/18/21 08:22 Source: patient and RN notes reviewed Mode of arrival: ambulatory Limitations: no limitations History of Present Illness HPI Narrative: This is a 41 year old female with history of migraines who presents for evaluation of left frontal headache. She developed headache last night. She describes headache as throbbing that has gradually worsened . She has associated nausea, vomiting and dizziness. She reports history of migraine headache but states she has never had vomiting with her headaches before. She denies fever, chills. She denies focal deficits. Headache is 9/10. Related Data Home Medications Medication Instructions Recorded Confirmed rizatriptan 10 mg PO .PRN PRN 12/06/20 12/06/20 bupropion HCl mg PO 01/18/21 fluoxetine mg 01/18/21 01/18/21 Allergies Allergy/AdvReac Type Severity Reaction Status Date / Time morphine Allergy Mild Rash Verified 01/18/21 08:29 cyclobenzaprine Allergy Unknown Itching Verified 01/18/21 08:29 Review of Systems Review of Systems: All systems reviewed & are unremarkable except as noted in HPI and below PMFSH Past Medical History Medical History Asthma Gestational diabetes GDMA2-dx 1st trimester HTN (hypertension) Miscarriage Surgical History Surgical History History of section x 4 History of cholecystectomy Family History Family History Son Trisomy 21 Father High cholesterol Heart disease Diabetes mellitus Hypertension Social History Social History Smoking packs per day: 1 Smoking cigarettes per day: 20.0 Years smoked: 20 Smoking pack-years: 20.00 Smoking status: Former smoker Smoking end date: 01/14/19 Substance use: never Gender identity (if verbalized by the patient): Female Spiritual care concerns: No Exam Const: General: no acute distress and alert Orientation/consciousness: patient oriented x3 HENMT: Head: normocephalic and atraumatic Face and sinus: face symmetric Mouth: Yes Normal oral and palatal mucosa present, Yes lip normal, Yes oropharynx normal and Yes moist mucous membranes Eyes: Conjunctivae: conjunctivae normal Pupils: Equal, round and reactive pupils present EOM: EOMs intact bilaterally Chest: Chest palpation & inspection: normal inspection of the chest Resp: Effort & Inspection: normal respiratory effort and no retractions Auscultation: clear to auscultation bilaterally Cardio: Rate: regular rate Rhythm: regular rhythm Heart sounds: no murmurs GI: GI Palp: Yes Soft to palpation, No Tenderness to palpation present (GI) and No Guarding due to palpation present (GI) Auscultation: normal bowel sounds Skin: General skin exam: normal color Rashes: no rashes Neuro: General: patient oriented x3, moves all extremities and CN's II-XI intact bilaterally Psych: Mental Status: mental status grossly normal Affect: normal affect Course Reevaluation(s) Reevaluation #1: PAtient states she feels much better and she is ready for discharge home. CT was unremarkable. This is gradual and not sudden onset to suggest SAH. No sign of meningitis. Date: 01/18/21 Time: 10:38 Vital Signs Vital signs: Vital Signs Temperature 98.0 F 01/18/21 08:22 Pulse Rate 74 01/18/21 08:22 Respiratory Rate 16 01/18/21 08:22 Blood Pressure 133/93 H 01/18/21 08:22 Pulse Oximetry 98 01/18/21 08:22 Temperature 98.0 F 01/18/21 08:22 Pulse Rate 74 01/18/21 08:22 Respiratory Rate 16 01/18/21 08:22 Blood Pressure 133/93 H 01/18/21 08:22 Pulse Oximetry 98 01/18/21 08:22 MDM - Headache Imaging Data Radiologist's impression: ITS Impre
== END 2021-01-18 11:14 | disposition home or self-care (01) ==
PROVIDERS: Emergency Provider General Practice
DX: G43.109 Migraine with aura, not intractable, without status migrainosus (principal); Z87.891 Personal history of nicotine dependence; J45.909 Unspecified asthma, uncomplicated; I10 Essential (primary) hypertension
CPT/HCPCS: 70450; 96361; 96374; 96375; 99284; J1200; J1885; J2765; J7120

== ENCOUNTER 2022-08-04 13:15 | Emergency (ER) | payer OTHER, SELFPAY ==
[2022-08-04 13:26] VITALS: BP 131/79; PULSE 84; RESP 16; TEMP 36.5; O2SAT 100
--- NOTE | 2022-08-04 13:37 | ED.SKABFB ---
HPI - Skin/Abscess/Foreign Bdy General Chief complaint: Skin/Abscess/Foreign Body Stated complaint: POSSIBLE SPIDER BITE History of Present Illness HPI narrative: 42 yo Female presents to urgent care with complaints of an area of redness to her right lower leg. Patient states 3 days ago she 1st noticed a quarter-sized area which has now grown in size. Patient reports associated tenderness to the area. Denies any fevers, chills, or vomiting. Related Data Home Medications Medication Instructions Recorded Confirmed bupropion HCl 150 mg 24 hr tablet, 300 mg PO DAILY 01/18/21 08/04/22 extended release Allergies Allergy/AdvReac Type Severity Reaction Status Date / Time morphine Allergy Mild Rash Verified 08/04/22 13:25 cyclobenzaprine Allergy Unknown Itching Verified 08/04/22 13:25 Review of Systems Review of Systems: Pertinent positives and pertinent negatives per HPI. [facility] Past Medical History Medical History Asthma Gestational diabetes GDMA2-dx 1st trimester HTN (hypertension) Miscarriage Surgical History Surgical History History of section x 4 History of cholecystectomy Family History Family History Son Trisomy 21 Father High cholesterol Heart disease Diabetes mellitus Hypertension Social History Social History Smoking packs per day: 1 Smoking cigarettes per day: 20.0 Years smoked: 20 Smoking pack-years: 20.00 Smoking status: Former smoker Smoking end date: 01/14/19 Substance use: never Gender identity (if verbalized by the patient): Female Spiritual care concerns: No Comments At the time of my signature, I reviewed and agree with the nursing past medical, surgical, social, and family history. There is no relevant family history pertinent to the patient complaint. Exam Narrative: GENERAL: This is a well-nourished, well-developed patient, in no apparent distress. HEAD: normocephalic, atraumatic. EYES: PERRL. Sclera clear/white. Vision is grossly intact. EARS: External ears normal, auditory canals clear and without drainage, TMs normal without perforation. Hearing grossly intact. NOSE: External nose normal with no obvious nasal discharge, nares without redness, no rhinorrhea. THROAT: Mucous membranes moist, posterior pharynx clear. NECK: Neck supple, non-tender without lymphadenopathy, masses or thyromegaly. CARDIOVASCULAR: Regular rate and rhythm without murmurs, gallops, or rubs. RESPIRATORY: Clear to auscultation. Breath sounds equal bilaterally. No wheezes, rales, or rhonchi. GASTROINTESTINAL: Abdomen soft, non-tender, nondistended. Bowel sounds are active. No hepato-splenomegaly, or palpable masses. No guarding. SKIN: Area of erythema extending approximately 7 cm in diameter with area of ecchymosis approximately 2 cm in center. No drainage no streaking. NEURO: awake, alert, and oriented to person, place and time. There were no obvious focal neurologic abnormalities. EXTREMITIES: No clubbing, cyanosis, or edema. No joint tenderness, effusion, or edema noted. BACK: Nontender without deformity or crepitance. No flank tenderness. Course Course Level of Care: Express Care Visit Vital Signs Vital signs: Vital Signs Temperature 97.7 F 08/04/22 13:26 Pulse Rate 84 08/04/22 13:26 Respiratory Rate 16 08/04/22 13:26 Blood Pressure 131/79 08/04/22 13:26 Pulse Oximetry 100 08/04/22 13:26 Temperature 97.7 F 08/04/22 13:26 Pulse Rate 84 08/04/22 13:26 Respiratory Rate 16 08/04/22 13:26 Blood Pressure 131/79 08/04/22 13:26 Pulse Oximetry 100 08/04/22 13:26 Reviewed MDM - Skin/Abscess/Foreign Bdy MDM Narrative Medical decision making narrative: Go to the ER with any new worseni
== END 2022-08-04 13:43 | disposition home or self-care (01) ==
PROVIDERS: Emergency Provider Nurse Practitioner Family; PCP Physician Assistant
DX: L03.115 Cellulitis of right lower limb (principal); S80.861A Insect bite (nonvenomous), right lower leg, initial encounter; I10 Essential (primary) hypertension; Z87.891 Personal history of nicotine dependence; W57.XXXA Bitten or stung by nonvenomous insect and other nonvenomous arthropods, initial encounter
CPT/HCPCS: 99213; G0463

== ENCOUNTER 2024-02-13 15:21 | Outpatient (CLI) | payer OTHER, SELFPAY ==
[2024-02-13 19:30] LABS: Basophils Absolute Auto 0.1 K/mm3 (0.0-0.1); Basophils Percent Auto 0.8 % (0.2-1.2); Eosinophils Absolute Auto 0.2 K/mm3 (0-0.3); Eosinophils Percent Auto 2.4 % (0-4.4); Hematocrit 48.4 % (37.0-47.0); Hemoglobin 15.6 g/dL (12.0-15.0); Immature Granulocyte Absolute 0.04 K/mm3 (0.00-0.031); Immature Granulocyte Percent A 0.5 % (0-0.5); Immature Platelet Fraction Pct 3.9 % (0.9-11.2); Lymphocytes Percent Auto 21.8 % (18.3-44.2); Mean Corpuscular HGB Conc 32.2 g/dl (32-36); Mean Corpuscular Hemoglobin 29.2 pg (26-34); Mean Corpuscular Volume 90.6 fl (80-100); Mean Platelet Volume 10.7 fl (7.4-10.4); Monocytes Absolute Auto 0.9 K/mm3 (0.1-0.6); Monocytes Percent Auto 10.2 % (2.6-8.5); Neutrophils Absolute Auto 5.6 K/mm3 (1.3-6.7); Neutrophils Percent Auto 64.3 % (45.5-73.1); Nucleated Red Blood Cells Perc 0.2 % (0.0-0.2); Platelet Count Result 278 k/mm3 (150-375); Red Blood Count 5.34 M/mm3 (4.2-5.4); Red Cell Distribution Width 12.8 % (11.5-14.5); White Blood Count 8.7 K/mm3 (4.5-10.0)
[2024-02-13 19:39] LABS: Alanine Aminotransferase 28 U/L (6-35); Albumin Level 4.4 g/dL (3.5-5.1); Alkaline Phosphatase 62 U/L (38-126); Anion Gap 7 mmol/L (4-12); Aspartate Amino Transferase 40 U/L (14-36); Bilirubin,Total 0.3 mg/dL (0.2-1.3); Blood Urea Nitrogen 13 mg/dL (7-17); Calcium 9.2 mg/dL (8.4-10.2); Carbon Dioxide 27 mmol/L (22-30); Chloride 104 mmol/L (98-107); Estimated Glomerular Filt Rate > 60; Glucose 116 mg/dL (65-110); Potassium 3.7 mmol/L (3.4-5.0); Sodium 138 mmol/L (137-145)
[2024-02-13 20:31] LABS: Vitamin D 25 Hydroxy 35.8 ng/mL
[2024-02-13 20:49] LABS: Iron 38 ug/dL (37-170)
[2024-02-13 20:59] LABS: Percent Iron Saturation 11 % (20-50)
[2024-02-13 21:36] LABS: Hemoglobin A1C 5.4 % (<5.7)
== END 2024-02-13 15:22 | disposition home or self-care (01) ==
LOC: ANHGOSHLAB 15:24
PROVIDERS: PCP Clinical Nurse Specialist; Visit Provider Clinical Nurse Specialist
DX: R74.8 Abnormal levels of other serum enzymes (principal); E03.9 Hypothyroidism, unspecified; G43.909 Migraine, unspecified, not intractable, without status migrainosus; I10 Essential (primary) hypertension; E55.9 Vitamin D deficiency, unspecified; R73.9 Hyperglycemia, unspecified; R53.83 Other fatigue
CPT/HCPCS: 36415; 80053; 82306; 82728; 83036; 83540; 83550; 84443; 85025; 85055

== ENCOUNTER 2024-03-19 09:20 | Outpatient (CLI) | payer OTHER, SELFPAY ==
[2024-03-19 12:35] LABS: Basophils Absolute Auto 0.1 K/mm3 (0.0-0.1); Basophils Percent Auto 0.7 % (0.2-1.2); Eosinophils Absolute Auto 0.2 K/mm3 (0-0.3); Hematocrit 44.6 % (37.0-47.0); Hemoglobin 14.3 g/dL (12.0-15.0); Immature Granulocyte Absolute 0.02 K/mm3 (0.00-0.031); Immature Granulocyte Percent A 0.2 % (0-0.5); Lymphocytes Absolute Auto 2.62 K/mm3 (0.9-3.2); Lymphocytes Percent Auto 30.4 % (18.3-44.2); Mean Corpuscular HGB Conc 32.1 g/dl (32-36); Mean Corpuscular Hemoglobin 28.7 pg (26-34); Mean Corpuscular Volume 89.4 fl (80-100); Mean Platelet Volume 10.4 fl (7.4-10.4); Monocytes Absolute Auto 0.6 K/mm3 (0.1-0.6); Neutrophils Absolute Auto 5.2 K/mm3 (1.3-6.7); Neutrophils Percent Auto 59.7 % (45.5-73.1); Platelet Count Result 271 k/mm3 (150-375); Red Blood Count 4.99 M/mm3 (4.2-5.4); Red Cell Distribution Width 12.3 % (11.5-14.5); White Blood Count 8.6 K/mm3 (4.5-10.0)
[2024-03-19 13:18] LABS: Cholesterol 162 mg/dL (0-200); HDL Direct 36 mg/dL; Triglycerides 68 mg/dL (<150)
[2024-03-19 13:29] LABS: LDL Cholesterol Direct 96 mg/dL
== END 2024-03-19 09:21 | disposition home or self-care (01) ==
PROVIDERS: PCP Clinical Nurse Specialist; Visit Provider Clinical Nurse Specialist
DX: R79.89 Other specified abnormal findings of blood chemistry (principal); I10 Essential (primary) hypertension
CPT/HCPCS: 36415; 80061; 85025

== ENCOUNTER 2024-09-03 02:10 | Emergency (ER) | payer OTHER, SELFPAY ==
[2024-09-03 02:13] VITALS: BP 188/99; PULSE 76; RESP 20; TEMP 36.4; O2SAT 100
--- OUTSIDE RECORDS SUMMARY | 2024-09-03 02:13 | XMS_ITS | Data Portability ---
Author Organization [place] - S [employer], Main Office Address [address] [place] [address] Assessment No assessment recorded. Plan of Treatment Reminders Order Date Submit Date Provider Last Modified By Organization Details Last Modified Time Details Appointments None recorded. Lab glycohemogl obin, total, blood 2023 024 [email or web address] 4 [facility] (Lab), [address] [place], [address], 4 10:28:48 lipid panel, serum [email or web address] [place] [address] (Lab), [address] [place], [address], 3 11:09:50 CBC [email or web address] [place] [address] (Lab), [address] [place], [address], 3 11:10:16 TSH, serum, reflex free T4 [id number] [place] [address] (Lab), [address] [place], [address], 3 11:10:31 iron + TIBC + ferritin, serum [email or web address] [place] [address] (Lab), [address] [place], [address], 3 11:10:50 vitamin D, 25-hydroxy, total, serum [id number] (Lab), [address] [place], [address], 3 11:11:09 CMP, serum or plasma [email or web address] (Lab), [address] [place], [address], 3 11:09:18 HbA1c (hemoglobin A1c), blood [email or web address] (Lab), [address] [place], [address], 3 11:09:36 vitamin B12 + folate, serum or blood [email or web address] (Lab), [address] [place], [address], 3 11:11:25 Referral general surgeon referral - Please call pt to schedule appt. Thank you 2022 023 [email or web address] Dayron Murphy MD, [address] [place] [address] [address], [place], [address], 3 15:56:03 Procedures None recorded. Surgeries None recorded. Imaging None recorded. Medication Orders Ozempic 0.25 mg or 0.5 mg (2 mg/1.5 mL) subcutaneou s pen injector 2022 023 [facility][id number], [address] [place], [address], 3 10:33:51 doxycycline hyclate 100 mg capsule 2022 023 [email or web address] 1 [facility], [address] [facility], [place], [address], 3 10:19:30 Patient TargetsNo targets recorded. Patient InstructionsNo instructions recorded. Reason for Referral General Surgeon Referral for Abscess of breast Please call pt to schedule appt. Thank you Referring Physician: Camila Schmidt, Family Medicine, Encounter Date: 06/26/2022 Results Created Date Observation Date Name Description Value Unit Range Abnormal Flag Note LastModifiedBy Organization Detail LastModifiedTime 08/08/19 23 08/07/2022 CT, lower extre mity, w/ contr ast No observ ation record ed. [email or web address] [facility], [place], [address], 08/08/2022 10:45:17 Result Notes None recorded. Problems Name Problem SNOMED Code Status Onset Date Resolution Date Notes Provider Name and Address Organization Details Recorded Time Fatigue 81123217 Active 2022 TOBY Walters [address], [address], [place], [address], [employer] 3 13:57:49 Mixed anxiety and depressive disorder 089556869 Active 2022 TOBY Walters [address], [address], [place], [address], [employer] 3 10:35:22 Abscess of breast 42536122 Active 2022 TOBY Walters [address], [address], [place], [address], [employer] 3 10:40:23 Morbid obesity 197010589 Active 2022 TOBY Walters [address], [address], [place], [address], [employer] 3 10:45:15 Vitamin D deficiency 06043149 Active 2022 TOBY Walters [address], [address], [place], [address], [employer] 3 10:47:53 Cobalamin deficiency 457974334 Active 2022 TOBY Walters [address], [address], [place], [address], [employer] 3 10:48:10 Nicotine dependence 88456052 Active 2022 TOBY Walters [address], [address], [place], [address], [employer] 3 10:52:43 Cellulitis of skin 535083741 Active 2022 Payal Hoang MD [address], [facility] [address], [place], [address], [employer] 3 15:41:07 Migraine 74178540 Active 2022 TOBY Walters [address], [place] [address], [place], [address], [employer] 3 14:54:23 Severe obesity 8482095880303 4 Active 2023 JANIS Sage [address] [facility], [place] [address], [place], [address], [employer] 4 09:55:44 Problem Notes None recorded. Procedures Surgical History Date Name Laterality Status Provider Name and Address Organization Details Recorded Time cholecystectomy completed TOBY Walters [address] [facility], [place] [address], [place], [address], [employer] 06/26/2022 10:51:09 Imaging Results None recorded. Procedure Notes None recorded. Medical Equipment None Reported. Allergies Allergen ID Allergen Name Allergen Category Reaction Reaction Severity Criticality Documentation Date Start Date Code Code System Note Provider Name and Address Organization Details Recorded Time 59457 morphine medicatio n itching moderate high 06/26/2022 7052 RxNorm KELSEY Joseph, [employer] 3 10:27:55 Medications Name Sig Start Date Stop Date Status Note LastModified by Organization Details LastModified Time fluoxetine 40 mg capsule TAKE 1 CAPSULE BY MOUTH EVERY DAY active Not Available Not Available No t Available doxycycline hyclate 100 mg capsule Take 1 capsule twice a day by oral route for 10 days. 10/01 completed Not Available Not Available Not Available ibuprofen 800 mg tablet TAKE 1 TABLET BY MOUTH EVERY 8 HOURS NEEDED WITH FOOD active Not Available Not Available No t Available sumatriptan 100 mg tablet TAKE 1 TABLET BY MOUTH AT ONSET OF MIGRAINE. MAY REPEAT IN 2 HOURS IF NEEDED. MAX OF 2 TABS/24 HOURS active Not Available Not Available No t Available hydrocodone 5 mg-acetamin ophen 325 mg tablet TAKE 1 TABLET BY MOUTH EVERY 6 HOURS NEEDED active Not Available Not Available No t Available rizatriptan 10 mg tablet TAKE ONE TABLET BY MOUTH AT ONSET OF MIGRAINE, MAY REPEAT DOSE ONE TIME AFTER AT LEAST 2 HOURS active Not Available Not Available No t Available acetaminoph en 300 mg-codeine 30 mg tablet TAKE 1 TABLET BY MOUTH EVERY 6 HOURS NEEDED FOR PAIN 10/01 completed Not Available Not Available Not Available sulfamethox azole 800 mg-trimetho prim 160 mg tablet TAKE 1 TABLET BY MOUTH TWICE A DAY FOR 10 DAYS 10/01 completed Not Available Not Available Not Available hydrocodone 10 mg-acetamin ophen 325 mg tablet TAKE 0.5-1 TABLETS BY MOUTH EVERY 6 (SIX) HOURS NEEDED FOR PAIN. INDICATIO NS: ACUTE PAIN active Not Available Not Available No t Available tramadol 50 mg tablet TAKE 1 TO 2 TABLETS BY MOUTH EVERY 6 HOURS NEEDED 10/01 completed Not Available Not Available Not Available acetaminoph en 500 mg tablet active Not Available Not Available Not Available benzonatate 100 mg capsule TAKE 1 CAPSULE BY MOUTH EVERY 8 HOURS NEEDED 10/01 completed Not Available Not Available Not Available cephalexin 500 mg capsule TAKE 1 CAPSULE BY MOUTH EVERY 12 HOURS FOR 7 DAYS 10/01 completed Not Available Not Available Not Available docusate sodium 100 mg capsule active Not Available Not Available N ot Available diclofenac sodium 75 mg tablet,gloria yed release TAKE 1 TABLET BY MOUTH 2 TIMES DAILY NEEDED. active Not Available Not Available No t Available hydroxyzine HCl 25 mg tablet TAKE 1 TABLET BY MOUTH 4 TIMES DAILY NEEDED FOR ANXIETY. active Not Available Not Available No t Available ergocalcife rol (vitamin D2) 1,250 mcg (50,000 unit) capsule TAKE 1 CAPSULE BY MOUTH ONCE WEEKLY active Not Available Not Available No t Available methylpredn isolone 4 mg tablets in a dose pack TAKE 6 TABLETS ON DAY 1 DIRECTED ON PACKAGE AND DECREASE BY 1 TAB EACH DAY FOR A TOTAL OF 6 DAYS 10/01 completed Not Available Not Available Not Available amoxicillin 875 mg-potassiu m clavulanate 125 mg tablet TAKE 1 TABLET BY MOUTH EVERY 12 HOURS FOR 10 DAYS 10/01 completed Not Available Not Available Not Available oxycodone 5 mg tablet 10/01 completed Not Available Not Available Not Available bupropion HCl XL 300 mg 24 hr tablet, extended release TAKE 1 TABLET BY MOUTH EVERY DAY active Not Available Not Available No t Available bupropion HCl XL 150 mg 24 hr tablet, extended release TAKE 1 TABLET BY MOUTH EVERY DAY active Not Available Not Available No t Available Vitamin D3 125 mcg (5,000 unit) tablet Take 1 tablet every day by oral route. 2022 active Not Available Not Available Not Avai lable Ozempic 0.25 mg or 0.5 mg (2 mg/1.5 mL) subcutaneou s pen injector active Not Available Not Available Not Available Mounjaro 2.5 mg/0.5 mL subcutaneou s pen injector Inject by subcutane ous route for 28 days. active Not Available Not Available No t Available Ozempic 0.25 mg or 0.5 mg (2 mg/3 mL) subcutaneou s pen injector active Not Available Not Available Not Available Vitals Date Recorded Body height Body mass index (BMI) Body weight Body temperature Heart rate Oxygen saturation Oxygen saturation in Arterial blood by Pulse oximetry Systolic blood pressure Diastolic blood pressure Provider Name and Address Organization Details Last Updated DateTime 4 165.1 cm 44.6 kg/m2 605870. 76 g 98.8 [degF] 84 /min 99 % 99 % 158 mm[Hg] 90 mm[Hg] Devi Rain RN [place] [employer] 4 09:50:24 Date Recorded Body height Body temperature Heart rate Oxygen saturation Oxygen saturation in Arterial blood by Pulse oximetry Body mass index (BMI) Body weight Systolic blood pressure Diastolic blood pressure Provider Name and Address Organization Details Last Updated DateTime 3 165.1 cm 97.8 [degF] 77 /min 98 % 98 % 45.6 kg/m2 676099. 31 g 140 mm[Hg] 80 mm[Hg] Belkys Kebede MA [facility] [employer] [facility] 3 10:25:59 Date Recorded Systolic blood pressure Diastolic blood pressure Provider Name and Address Organization Details Last Updated DateTime 10/01/2022 140 mm[Hg] 80 mm[Hg] TOBY Walters [address], [facility] [address], [place], [address], [facility] [employer] [facility] 10/01/2022 10:25:49 Date Recorded Body height Body mass index (BMI) Body weight Body temperature Oxygen saturation Oxygen saturation in Arterial blood by Pulse oximetry Heart rate Provider Name and Address Organization Details Last Updated DateTime 3 165.1 cm 45.9 kg/m2 528998. 49 g 97 [degF] 98 % 98 % 80 /min Carolyn Cartwright CMA [facility] [employer] [facility] 10:15:31 Social History Question Answer Notes LastModified by [employer] Details LastModified Time Tobacco Smoking Status Current Every Day Smoker Pilar darden, [facility] [employer] [facility] 05/22/2023 09:45:12 If You Are , What Was Your Level Of Alcohol Consumption Prior To ? None [email or web address] Information not available 05/22/2023 What Is Your Level Of Caffeine Consumption? None Information not available 06/26/2022 What Type Of Diet Are You Following? REGULAR [email or web address] Information not available 06/26/2022 How Many Days Of Moderate To Strenuous Exercise, Like A Brisk Walk, Did You Do In The Last 7 Days? 3 [email or web address] Information not available 05/22/2023 Have You Ever Been Counseled For Unhealthy Alcohol Use? No [email or web address] Information not available 05/22/2023 Do You Have Any Dietary Restrictions? No [email or web address] Information not available 05/22/2023 Sex: Unknown Functional Status Question Answer Note LastModified by [employer] Details LastModified Time Do you use any illicit or recreational drugs? No [email or web address] Information not available 05/22/2023 Do you or have you ever used any other forms of tobacco or nicotine? No [email or web address] Information not available 05/22/2023 What is your level of alcohol consumption? Occasional [email or web address] Information not available 06/26/2022 What is your exercise level? Occasional [email or web address] Information not available 06/26/2022 Mental Status None recorded. Family History Relationship Description Onset Age of this Age Resolved Age Notes LastModified by Organization Details LastModified Time Father Hypertensive disorder [email or web address] Not available 2022 10:29:26 Father Hyperlipidem ia [email or web address] Not available 2022 10:29:43 Father Diabetes mellitus type 2 [email or web address] Not available 2022 10:30:09 Father Disorder of cardiovascul ar system [email or web address] Not available 2022 10:30:34 Medical History No medical history recorded. Gynecological HistoryNo gynecological history recorded. Obstetrics History GPAL:G 0 P 0 0 0 0 Past Encounters Encounter ID Performer Location Encounter Start Date Encounter Closed Date Diagnosis/Indication Diagnosis SNOMED-CT Code Diagnosis ICD10 Code Diagnosis Note [id number] TOBY Walters [facility] [address] [facility] [address] [place] [address] 06/26/2022 10:08:39 06/26/2022 11:08:05 Diabetes mellitus screening 448725123 Z13.1 Hyperlipid emia screening 541216061 Z13.220 Fatigue 25402080 R53.83 Has felt more of a struggle since she moved, states their house has been a lot of work. She has struggled with fatigue however before that but worsening. She also mentions possible new onset of restless legs. Will check labs to r/o physiologi c causes. Also encouraged her if due to increased stress to consider getting back on her anxiety/de pression medication . Mixed anxi ety and depressive disorder 106270339 F41.8 States she has scripts for prozac and Bupropion, but states she has not been on them for about 3 months. They were prescribed by her OBGYN. Abscess of breast 869586 03 N61.1 She originally had it drained on 05/15/22 at [facility] but she has not been able to get a follow-up scheduled. It is still open and draining. Will send referral to a new surgeon to evaluate the abscess, she states they had no concern for other breast pathology. Morbid obesity 525864868 E66.01 She states she has gained about 25lbs since March, states she moved and does not work anymore so it has been hard for her to feel like she is getting things done and taking care of herself. She has been trying to start working on eating healthier and exercising regularly. Will get labs to r/o any physiologi c barriers to weight loss. Also encouraged her if due to increased stress to consider getting back on her anxiety/de pression medication . Vitamin D deficiency 347 13976 E55.9 Previously on supplement but has not been on one currently. Cobalamin deficiency 190 978396 E53.8 Nicotine dependence 5629 4008 F17.200 5 cigarettes per day, has been smoking for about 20 years. Encouraged smoking cessation. Adult heal th examination 072517938 Z00.00 Will get routine labs today. Covid vaccines- recommende d boostersFl u vaccine- recommende d every fallTetanu s vaccine- up to date per patient Pap- up to date, followed by gynColonos copy- recommende d age 45 *denies any family hxMammogra m- up to date, followed by radiophone operator Recommende d routine eye exams and dental cleanings. [id number] Payal Hoang MD [facility] [address] [facility] [address] [place] [address] 10/01/2022 10:11:10 10/01/2022 10:40:10 Morbid obesity 516280239 E66.01 States she has been working on healthier diet but has not been able to lose weight. She has been cutting back on carbs and reduced most of her sugars.She has been drinking only water. She has been walking 45 min. - 1 hour at least 3 times a week.She is interested trying injectable .She has tried and failed phentermin e and bupropion. The phentermin e causes her to want to smoke more so she is not wanting to get back on it. BP also slightly elevated so will continue to monitor.I have advised insurance coverage unlikely for obesity since all labs normal. She would like to still try to push it through and may be willing to pay self pay ramirez.Will put in script for ozempic. 06/26/22: She states she has gained about 25lbs since March, she moved and does not work anymore so it has been hard for her to feel like she is getting things done and taking care of herself. She has been trying to start working on eating healthier and exercising regularly. Will get labs to r/o any physiologi c barriers to weight loss. Also encouraged her if due to increased stress to consider getting back on her anxiety/de pression medication . [id number] Payal Hoang MD [facility] [place] [address] [facility] [address] [place] [address] 05/22/2023 09:43:51 05/22/2023 12:40:04 Severe obesity 8427265803 9104 E66.01 -pt has lost 8 lbs since last visit-she exercises 5 days/week, walks on incline treadmill for 30 mins-drink s 8-10 16oz bottles of water-note s fresh fruits/veg gies, tries to stay away from carbs-she is wanting to start a medication for weight loss-labs obtained-w ill order mounjaro if prediabete s is noted-f/u in 1 month Health Concerns Section Related Observation LastModified by Organization Detai ls LastModified Time None Recorded Concern Status LastModified by Organization Details LastModified Time None Recorded Advance Directives Directive None Recorded Payers Encounter Date Sequence Insurance Name Policy Number Policy Sherman Covered Member ID Sherman Member ID Guarantor Name 06/26/2022 1 [facility] ON OR AFTER 09/29/20 (MEDICAID REPLACEMENT - HMO) Rosalind Simmons [id number] Rosalind Simmons 10/01/2022 1 [facility] ON OR AFTER 09/29/20 (MEDICAID REPLACEMENT - HMO) Rosalind Simmons [id number] Rosalind Simmons 05/22/2023 1 [facility] ON OR AFTER 09/29/20 (MEDICAID REPLACEMENT - HMO) Rosalind Simmons [id number] Rosalind Simmons Notes Date Note Type Note Provider Name and Address Organization Details Recorded Time 06/26/2022 text/html Pt. here to establish care. She is also established with OBGYN (Dr. Sharma).-She states she has a family history of diabetes and she had gestational diabetes. Has not had bloodwork in awhile.-She is also concerned with weight gain, fatigue. She does state they moved recently and she stopped working which is when she noticed the increase in weight and fatigue got worse. Her house has been a lot of work which has also caused increased stress. She has been prescribed medication for anxiety/depression but stopped taking them about 3 months ago.-She also states she had a large abscess in her right breast that was drained and packed in May. She states she has been having issues with it recently and is still packing it. She was supposed to follow-up with them but states she has not been able to follow-up with them. TOBY Walters [address], [facility], [place], [address], [employer] 06/26/2022 11:03:56 10/01/2022 text/html Pt. states she h as been trying to lose weight without success. Would like to discuss weight loss medication. She has been on phentermine in the past. TOBY Walters [address], [facility], [place], [address], [employer] 10/01/2022 11:58:15 05/22/2023 text/html Pt is here to discuss weight loss JANIS Sage [address], [address], [place], [address], [employer] 05/22/2023 11:21:10 OBGyn Episode No OBEpisode recorded.
--- OUTSIDE RECORDS SUMMARY | 2024-09-03 02:13 | XMS_ITS | Referral Summary ---
Author Organization [facility] Address [facility] [place] [address] Care Team Providers Care Agricultural Purchasing Agent Name Role Phone Danay Sharma MD Unavailable [phone] No, Physician Primary Care Provider [phone] Aft, Claudia Lopez MD PhD Unavailable [phone] Allergies Active Allergy Reactions Criticality Noted Date Comments Sulfamethoxazole-Trimethoprim Urticaria Medium 2022 Morphine Hives Medium Reaction: Hives, Opioids - Morphine Analogues Medications SUMAtriptan (IMITREX) 100 mg tablet TAKE 1 TABLET BY MOUTH AT ONSET OF MIGRAINE. MAY REPEAT IN 2 HOURS IF NEEDED. MAX OF 2 TABS/24 HOURS 03/13/2022 Active FLUoxetine (PROzac) 40 mg capsule Take by mouth daily 03/13/2022 Active ergocalciferol (VITAMIN D) 50,000 unit capsule Take 50,000 Units by mouth once a week 03/13/2022 Active buPROPion XL (WELLBUTRIN XL) 300 mg 24 hr tablet Take 300 mg by mouth daily 03/13/2022 Active hydrOXYzine (ATARAX) 25 mg tablet 05/01/2022 Active HYDROcodone-tanner taminophen (NORCO) 5-325 mg per tablet Take by mouth every 6 (six) hours as needed 05/11/2022 Active cephalexin (KEFLEX) 500 mg capsule Take 500 mg by mouth 4 (four) times a day Active oxyCODONE (ROXICODONE) 5 mg immediate release tabletIndicatio ns:Pain Take 1 tablet (5 mg total) by mouth every 4 (four) hours as needed for pain 5 tablet 05/15/2022 Active acetaminophen (TYLENOL) 500 mg tablet Take 1 tablet (500 mg total) by mouth every 6 (six) hours as needed for pain 30 tablet 05/15/2022 Active docusate sodium (COLACE) 100 mg capsuleIndicati ons:constipatio n Take 1 capsule (100 mg total) by mouth 2 (two) times a day with a glass of water 15 capsule 05/15/2022 Active Active Problems Problem Noted Date Diagnosed Date Abscess of right breast 04/08/2022 Disorder of breast 12/11/2013 Social History Tobacco Use Types Packs/Day Years Used Date Smoking Tobacco: Every Day Cigarettes Smokeless Tobacco: Never Tobacco Cessation:Ready to Q uit: Not Asked; Counseling Given: Not Answered Comments:Smoking History Packs/day: 5 Packs Alcohol Use Standard Drinks/Week Comments Yes 0 (1 standard drink = 0.6 oz pur e alcohol) AUDIT-C Answer Date Recorded Q1: How often do you have a drink containing alc ohol? Monthly or less 05/15/2022 Q2: How many drinks containi ng alcohol do you have on a typical day when you are drinking? 3 or 4 05/15/2022 Q3: How often do you have si x or more drinks on one occasion? Never 05/15/2022 Personal Safety Answer Date Recorded Getting School Help Needed Denies 04/07 Comments No Sex and Gender Information Value Date Recorded Sex Assigned at Not on file Legal Sex Female 2:57 AM SETTER OUT Gender Identity Not on file Sexual Orientation Not on file Last Filed Vital Signs Vital Sign Reading Time Taken Comments Blood Pressure 114/68 05/15/2022 6:30 PM SETTER OUT Pulse 71 05/15/2022 6:30 PM SETTER OUT Temperature 36.3 C (97.3 F) 05/15/2022 5:10 PM SETTER OUT Respiratory Rate 19 05/15/2022 6:30 PM SETTER OUT Oxygen Saturation 100% 05/15/2022 6:30 PM SETTER OUT Inhaled Oxygen Concentration - - Weight 113.4 kg (250 lb) 05/15/2022 1:18 PM SETTER OUT Height 165.1 cm (5' 5) 05/15/2022 1:18 PM SETTER OUT Body Mass Index 41.6 05/15/2022 1:18 PM SETTER OUT Plan of Treatment Not on file Procedures Procedure Name Priority Date/Time Associated Diagnosis Comments DIAGNOSTIC MAMMOGRAM BILATERAL W JODEE Schedule Routine, Read Routine (OP Routine) 04/04/2022 12:04 PM SETTER OUT Disorder of breast from Last 3 Months or Most Recently Relevant to Health Maintenance Results * Diagnostic Mammogram Bilateral W Jodee (04/04/2022 12:04 PM SETTER OUT) Anatomical Region Laterality Modality Breast Bilateral Mammography 04/04/2022 1:31 PM SETTER OUT Addenda Addendum by Danay Durham MD on 04/25/2022 4:41 PM SETTER OUT Addendum: This addendum is being utilized to clarify the interval follow-up time to perform repeat RIGHT diagnostic mammogram and/or ultrasound. It is stated that the patient should undergo follow-up imaging after resolution of the clinical findings. A 3 month follow-up would be appropriate. Electronically signed by: Danay Durham M.D. Impressions 04/04/2022 1:42 PM SETTER OUT Increased RIGHT breast subareolar edema correlating with an irregular shaped hypoechoic 5.7 cm collection on sonogram is most compatible with an abscess. There is also an enlarged likely reactive right axillary lymph node. The method of initial detection of finding was patient-reported clinical symptom (Pat). OVERALL FINAL ASSESSMENT: BI-RADS Category 3: Probably Benign. RECOMMENDATION: 1. Abscess treatment with medical therapy versus incision/drainage per clinical team. 2. Recommend short interval follow-up diagnostic imaging with repeat mammogram and possibly ultrasound of the RIGHT breast once symptoms resolve after treatment. Dictated by: Ravin Mckinney MD The radiology attending physician has personally reviewed this study, and had reviewed and/or edited this written report and agrees with it. Electronically signed by: Danay Durham M.D. Narrative 04/04/2022 1:42 PM SETTER OUT EXAMINATION: BILATERAL DIGITAL DIAGNOSTIC MAMMOGRAM AND DIGITAL BREAST TOMOSYNTHESIS; RIGHT BREAST AND RIGHT AXILLA SONOGRAM HISTORY: 42-year-old female with a history of prior RIGHT breast abscess in 2013 which was drained, presenting with an enlarging painful RIGHT breast subareolar mass. Patient originally reported erythema and fever however since starting on antibiotics after 1 day, erythema has resolved. COMPARISON: Ultrasound 12/16/2013 TECHNIQUE: Full field digital mammographic views of BOTH breasts were performed, including computer aided detection (CAD) and digital breast tomosynthesis (DBT). Directed ultrasound evaluation of the RIGHT breast and RIGHT axilla was performed. BREAST PARENCHYMAL COMPOSITION: There are scattered areas of fibroglandular density. MAMMOGRAM FINDINGS: Diffusely increased density in the RIGHT breast in the subareolar region with the overlying marker is most likely due to increased edema. There are no suspicious calcifications, architectural distortion or distinct mass within this region. No suspicious abnormalities in the LEFT breast. SONOGRAM FINDINGS: Targeted ultrasound in the palpable region of concern in the RIGHT breast 1:00 region 4 cm from the nipple shows an irregular lobulated hypoechoic collection measuring 5.7 x 2.7 x 3.0 cm with associated surrounding hyperechogenicity likely from edema. Lesion demonstrates posterior acoustic enhancement and no internal vascularity. Additionally there is an enlarged lymph node in the RIGHT axilla measuring 0.6 cm which is likely reactive. Procedure Note Danay Durham MD - 04/04/2022 EXAMINATION: BILATERAL DIGITAL DIAGNOSTIC MAMMOGRAM AND DIGITAL BREAST TOMOSYNTHESIS; RIGHT BREAST AND RIGHT AXILLA SONOGRAM HISTORY: 42-year-old female with a history of prior RIGHT breast abscess in 2013 which was drained, presenting with an enlarging painful RIGHT breast subareolar mass. Patient originally reported erythema and fever however since starting on antibiotics after 1 day, erythema has resolved. COMPARISON: Ultrasound 12/16/2013 TECHNIQUE: Full field digital mammographic views of BOTH breasts were performed, including computer aided detection (CAD) and digital breast tomosynthesis (DBT). Directed ultrasound evaluation of the RIGHT breast and RIGHT axilla was performed. BREAST PARENCHYMAL COMPOSITION: There are scattered areas of fibroglandular density. MAMMOGRAM FINDINGS: Diffusely increased density in the RIGHT breast in the subareolar region with the overlying marker is most likely due to increased edema. There are no suspicious calcifications, architectural distortion or distinct mass within this region. No suspicious abnormalities in the LEFT breast. SONOGRAM FINDINGS: Targeted ultrasound in the palpable region of concern in the RIGHT breast 1:00 region 4 cm from the nipple shows an irregular lobulated hypoechoic collection measuring 5.7 x 2.7 x 3.0 cm with associated surrounding hyperechogenicity likely from edema. Lesion demonstrates posterior acoustic enhancement and no internal vascularity. Additionally there is an enlarged lymph node in the RIGHT axilla measuring 0.6 cm which is likely reactive. IMPRESSION: Increased RIGHT breast subareolar edema correlating with an irregular shaped hypoechoic 5.7 cm collection on sonogram is most compatible with an abscess. There is also an enlarged likely reactive right axillary lymph node. The method of initial detection of finding was patient-reported clinical symptom (Pat). OVERALL FINAL ASSESSMENT: BI-RADS Category 3: Probably Benign. RECOMMENDATION: 1. Abscess treatment with medical therapy versus incision/drainage per clinical team. 2. Recommend short interval follow-up diagnostic imaging with repeat mammogram and possibly ultrasound of the RIGHT breast once symptoms resolve after treatment. Dictated by: Ravin Mckinney MD The radiology attending physician has personally reviewed this study, and had reviewed and/or edited this written report and agrees with it. Electronically signed by: Danay Durham M.D. Katie Frazier NP IMG MAMMO PROCEDURES Sid lisseth Result - Final from Last 3 Months or Most Recently Relevant to Health Maintenance Insurance [facility] Care Teams Agricultural Purchasing Agent Relationship Specialty Start Date End Date No, Physician PCP - General 04/04/22 Danay Sharma MD [address] [id number] Referring Physician Gynecology 01/05/20 Aft, Claudia Lopez MD PhD [address] [place] [address] Surgeon Surgical Oncology 05/15/22
--- OUTSIDE RECORDS SUMMARY | 2024-09-03 02:13 | XMS_ITS | Clinical Summary ---
Author Organization [facility] Address [address] [place] [address] Phone Care Team Providers Care Industrial Twisting Machine Operator Name Role Phone Unavailable Primary Care Provider Unavailabl e Social History Tobacco Use Types Packs/Day Years Used Date Smoking Tobacco: Never Assessed Comments Unknown Sex and Gender Information Value Date Recorded Sex Assigned at Not on file Legal Sex Female 12:55 PM NEON TUBE PUMPER Gender Identity Not on file Sexual Orientation Not on file Plan of Treatment Health Maintenance Due Date Last Done Comments DTAP/TDAP/TD VACCINES (1 - Tdap) 2001 HEPATITIS B VACCINES (1 of 3 - 19+ 3-dose series) 2001 HPV/Cotest (21-29) 2003 CERVICAL CANCER SCREENING 01/17/2012 HPV/Cotest (30-65) 01/17/2012 PAP SMEAR 01/17/2012 BREAST CANCER SCREENING 2022 INFLUENZA VACCINE (#1) 2023 HPV VACCINES Aged Out No longer eligi ble based on patient's age to complete this topic Insurance [place] [facility]
--- OUTSIDE RECORDS SUMMARY | 2024-09-03 02:13 | XMS_ITS | Clinical Summary ---
Author Organization [facility] Address [facility] [place] [address] Care Team Providers Care Washer Meat Name Role Phone Danay Sharma MD Unavailable [phone] No, Physician Primary Care Provider [phone] Aft, Claudia Lopez MD PhD Unavailable [phone] Allergies Active Allergy Reactions Criticality Noted Date [...] right breast 04/08/2022 Disorder of breast 12/11/2013 Surgical History Surgery Date Site/Laterality Comments CHOLECYSTECTOMY 2011 Cholecystectomy SECTION section Family History Medical History Relation Name Comments No Known Problems Mother Relation Name Status Comments Mother Social History Tobacco Use Types Packs/Day Years [...] on file Legal Sex Female 2:57 AM PACKER INSPECTOR Gender Identity Not on file Sexual Orientation Not on file Obstetrics History Last Filed Vital Signs Vital Sign Reading Time Taken Comments Blood Pressure 114/68 05/15/2022 6:30 PM PACKER INSPECTOR Pulse 71 05/15/2022 6:30 PM PACKER INSPECTOR Temperature 36.3 C (97.3 F) 05/15/2022 5:10 PM PACKER INSPECTOR Respiratory Rate 19 05/15/2022 6:30 PM PACKER INSPECTOR Oxygen Saturation 100% 05/15/2022 6:30 PM PACKER INSPECTOR Inhaled Oxygen Concentration - - Weight 113.4 kg (250 lb) 05/15/2022 1:18 PM PACKER INSPECTOR Height 165.1 cm (5' 5) 05/15/2022 1:18 PM PACKER INSPECTOR Body Mass Index 41.6 05/15/2022 1:18 PM PACKER INSPECTOR Plan of Treatment Health Maintenance Due Date Last Done Comments Cervical Cancer Screening 1982 Depression Screening 1982 Hepatitis C Screening 1982 DTaP/Tdap/Td Vaccine (6 - Tdap) 1993 11/26/1990, 08/11/1983, 1982, Additional history exists Varicella Vaccines (1 of 2 - 13+ 2-dose series) 1995 Regular Well Visit/Exam 18-64 01/17/2000 Pneumococcal vaccine <65 (1 of 2 - PCV) 2001 Breast Cancer Screening-Mammogram 04/04/2023 04/04/2022 Covid-19 Vaccine ( season) 2023 06/22/2020, 06/02/2020 Influenza Vaccine (Season Ended) 2024 03/12/2012 Hepatitis B Screening Completed 03/04/1998, 998 HPV Vaccines Aged Out No longer eligi ble based on patient's age to complete this topic Procedures Procedure Name Priority Date/Time Associated Diagnosis Comments DIAGNOSTIC MAMMOGRAM BILATERAL W JODEE Schedule Routine, Read Routine (OP Routine) 04/04/2022 12:04 PM PACKER INSPECTOR Disorder of breast from Last 3 Months or Most Recently Relevant to Health Maintenance Results * Diagnostic Mammogram Bilateral W Jodee (04/04/2022 12:04 PM PACKER INSPECTOR) Anatomical Region Laterality Modality Breast Bilateral Mammography 04/04/2022 1:31 PM PACKER INSPECTOR Addenda Addendum by Danay Durham MD on 04/25/2022 4:41 PM PACKER INSPECTOR Addendum: This addendum is being utilized to clarify the interval follow-up time to perform repeat RIGHT diagnostic mammogram and/or ultrasound. It is stated that the patient should undergo follow-up imaging after resolution of the clinical findings. A 3 month follow-up would be appropriate. Electronically signed by: Danay Durham M.D. Impressions 04/04/2022 1:42 PM PACKER INSPECTOR Increased RIGHT breast subareolar edema correlating with [...] Danay Durham M.D. Narrative 04/04/2022 1:42 PM PACKER INSPECTOR EXAMINATION: BILATERAL DIGITAL DIAGNOSTIC MAMMOGRAM AND DIGITAL [...] Most Recently Relevant to Health Maintenance Insurance [facility] Care Teams Washer Meat Relationship Specialty Start Date End Date No, Physician PCP - General 04/04/22 Danay Sharma MD [address] [address] Referring Physician Gynecology 01/05/20 Aft, Claudia Lopez MD PhD [address] [place] [address] Surgeon Surgical Oncology 05/15/22
--- OUTSIDE RECORDS SUMMARY | 2024-09-03 02:13 | XMS_ITS | Continuity of Care Document ---
Author Organization [facility] Address [address] [place] [address] Phone Care Team Providers Care Expeditionary Fighting Vehicle Crewman Name Role Phone Unavailable Unavailable Unavailable Advance Directives Directive Yes / No Effective Date File Name No Information Encounters Encounter Description Practice Location Reason(s) For Visit Diagnoses Date Provider Providers Copied on Encounter [facility], [address] [facility], [place], [place], [id number], [place] tel:[phone] [facility] No Information No Information Referring Provider: ALEK Cha, [address], [place], [address]. tel:[phone] Family History Family Member Type Diagnosis Age At Onset No Information Payers Payer name Insurance type Covered democrat ID Authoriza tiosmani(s) [facility] INDEMNITY [id number] 1 Social History Type Description Quantity Date Captured Comments Sex Female Smoking Status No Information Chief Complaint And Reason For Visit No Information History Of Present Illness Encounter Date Complaint History Of Prese nt Illness No Information Instructions Date Instruction Additional Infor mation No Information Assessments Type Assessment Date No Information
--- NOTE | 2024-09-03 02:26 | ED_ITS ---
HPI - Dental/Oral General Chief complaint: Dental/Oral Stated complaint: toothache Time Seen by Provider: 09/03/24 02:12 History of Present Illness HPI Narrative: 44-year-old female presenting to the emergency department for complaints of a left-sided toothache. Patient states she chipped her left-sided wisdom tooth approximately 8 weeks ago and has not been able to find dentist and was referred to an oral surgeon. She states that she has been taking Advil and previously had relief of her symptoms but now is having recurrence for pain that is not responding to Tylenol, Advil or oragel. She denies any fevers, chills, trismus, difficulty swallowing, phonation changes, swelling in the jaw. Endorses some pain left-sided for jaw radiating up towards ear. Teeth map: 2 1. Dental fracture, gingival hyperemia, no definitive abscess Related Data Allergies Allergy/AdvReac Type Severity Reaction Status Date / Time morphine Allergy Mild Rash Verified 09/03/24 02:24 cyclobenzaprine Allergy Unknown Itching Verified 09/03/24 02:24 Review of Systems 2 Review of Systems: As reviewed above in HPI PMFSH Past Medical History Medical History Asthma HTN (hypertension) Gestational diabetes GDMA2-dx 1st trimester Miscarriage Surgical History Surgical History History of cholecystectomy History of section x 4 Family History Family History Son Trisomy 21 Father High cholesterol Heart disease Diabetes mellitus Hypertension Grandparent Ovarian cancer stage 3 Social History Social History Smoking packs per day: 1 Smoking cigarettes per day: 20.0 Years smoked: 20 Smoking pack-years: 20.00 Smoking status: Former smoker Smoking end date: 01/14/19 Substance use: never Gender identity (if verbalized by the patient): Female Spiritual care concerns: No Exam 2 Narrative: GENERAL: [Well-appearing, well-nourished, and in no acute distress.] HEAD: [Normocephalic, atraumatic.] EYES: [PERRLA and EOMI.] ENT: Nares clear, no rhinorrhea or epistaxis. Mucous membranes moist. Previous dental fracture along tooth 17 with surrounding gingival hyperemia but no periapical abscess or purulence. Poor dentition with previous fillings in multiple teeth NECK: Supple. CHEST: Nonlabored respirations EXTREMITIES: Normal range of motion. [No edema.] SKIN: Warm, dry, no rash. NEURO: [No focal deficits]. Alert and oriented [x3.] PSYCH: [Normal mood and affect.] Course Vital Signs Vital signs: Vital Signs Temperature 36.4 C 09/03/24 02:13 Pulse Rate 76 09/03/24 02:13 Respiratory Rate 20 09/03/24 02:13 Blood Pressure 188/99 H 09/03/24 02:13 Pulse Oximetry 100 09/03/24 02:13 Oxygen Delivery Room Air 09/03/24 02:13 Temperature 36.6 C 09/03/24 02:46 Pulse Rate 69 09/03/24 02:46 Respiratory Rate 18 09/03/24 02:46 Blood Pressure 176/93 H 09/03/24 02:46 Pulse Oximetry 100 09/03/24 02:46 Oxygen Delivery Room Air 09/03/24 02:13 MDM - Dental/Oral MDM Narrative Medical decision making narrative: 44-year-old female presenting to the emergency depart with left-sided toothache. She states that for last 2 months she has been dealing with a broken wisdom tooth and tried to get to a dentist but was referred to an oral surgeon. Has been taking Tylenol Advil and gel without any significant relief for last day. Denies any fever, chills, trismus, difficulty swallowing. On examination she does have a dental fracture tooth 17. In the bottom left side of her mandibular jaw with some surrounding hyperemia concerning for possible infection but no abscess is present or appears drainable. She otherwise is in normal health with no other concerns during today's visit. We discussed treatment options going forward with different of care with an oral surgeon that she will try and establish with but in the meantime we will treat her with a dose of antibiotics and pain control medications. She was given intramuscular Toradol on Augmentin and sent home with prescriptions. Patient's questions were answered she was given return precautions and follow-up instructions with oral surgery. Medical Records Attestation: I reviewed the patient's medical records. Discharge Plan Discharge Clinical Impression: Fractured tooth, Dental caries Patient Disposition: Home Condition: Stable Instructions: Antibiotic Form, Toothache (ED) Additional Instructions: Follow-up with your oral surgeon for definitive care and you likely need the tooth extracted or root canal. Take the prescribed antibiotic twice daily for the next 10 days, continue taking anti-inflammatory medications for pain control and we will prescribe you higher strength medications for brief period of time. Return with any emergent concerns. Patient Language: Danish Prescriptions: New ibuprofen 800 mg tablet 800 mg PO TID PRN (Reason: pain) Qty: 15 0RF amoxicillin-pot clavulanate 875-125 mg tablet 1 tablet PO Q12H 10 Days Qty: 20 0RF No Action hydroxyzine HCl 25 mg tablet 25 mg PO TID PRN (Reason: anxiety) Qty: 90 0RF fluoxetine 40 mg capsule 40 mg PO DAILY Qty: 90 1RF Follow-up/Referrals: Stephanie Lopez [facility] CONSULTANT-C [Primary Care Provider] - Stand Alone Forms: Work/School Release IP Time of Disposition: 02:32
--- OUTSIDE RECORDS SUMMARY | 2024-09-03 02:31 | XMS_ITS | Continuity of Care Document ---
Author Organization [facility] Address [address] [place] [address] Phone Care Team Providers Care Fish Checker Name Role Phone Unavailable Unavailable Unavailable Advance Directives Directive Yes / No Effective Date File Name No Information Encounters Encounter Description Practice Location Reason(s) For Visit Diagnoses Date Provider Providers Copied on Encounter [facility], [address] [facility], [place], [place], [id number], [place] tel:[phone] [facility] No Information No Information Referring Provider: ALEK Cha, [address], [place], [address]. tel:[phone] Family History Family Member Type Diagnosis Age At Onset No Information Payers Payer name Insurance type Covered libertarian ID Authoriza tiosmani(s) [facility] INDEMNITY [id number] 1 Social History Type Description Quantity Date Captured Comments Sex Female Smoking Status No Information Chief Complaint And Reason For Visit No Information History Of Present Illness Encounter Date Complaint History Of Prese nt Illness No Information Instructions Date Instruction Additional Infor mation No Information Assessments Type Assessment Date No Information
[2024-09-03 02:32] VITALS: BP 176/93; O2SAT 99
[2024-09-03] MEDS: KETOROLAC (*BKC) 60 MG/2 ML VIAL IM (02:32)
[2024-09-03] MEDS: AMOXICILLIN/CLAVULANATE K 875-125 MG TAB 1 TABLET PO (02:32)
[2024-09-03 02:46] VITALS: BP 176/93; PULSE 69; RESP 18; TEMP 36.6; O2SAT 100
== END 2024-09-03 02:48 | disposition home or self-care (01) ==
PROVIDERS: Emergency Provider Student in an Organized Health Care Education/Training Program; PCP Clinical Nurse Specialist
DX: K02.9 Dental caries, unspecified (principal); K03.81 Cracked tooth; J45.909 Unspecified asthma, uncomplicated; I10 Essential (primary) hypertension; Z87.891 Personal history of nicotine dependence; Z90.49 Acquired absence of other specified parts of digestive tract
CPT/HCPCS: 96372; 99283; A9270; J1885

== ENCOUNTER 2025-02-21 11:37 | Emergency (ER) | payer OTHER, SELFPAY ==
[2025-02-21 11:45] VITALS: BP 142/99; PULSE 78; RESP 16; TEMP 36.2; O2SAT 100
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
== END 2025-02-21 12:58 | disposition home or self-care (01) ==
PROVIDERS: Emergency Provider Nurse Practitioner; PCP Clinical Nurse Specialist
DX: S00.11XA Contusion of right eyelid and periocular area, initial encounter (principal); W22.8XXA Striking against or struck by other objects, initial encounter; I10 Essential (primary) hypertension; J45.909 Unspecified asthma, uncomplicated; Z87.891 Personal history of nicotine dependence
CPT/HCPCS: 99212; G0463